=== PATIENT | female | born 1965 | race African-American/Black ===

== ENCOUNTER 2017-05-27 19:17 | Emergency (ER) | payer MEDICARE ==
[~2017-05-27] VITALS: Ht 162.6 cm; Wt 101.2 kg
[~2017-05-27 19:17] MED LIST: ALEVE220 MG OR; AMBIEN5 MG PO; AMITRIPTYLIN25 MG PO; AMLODIPINE2.5 MG PO; ASPIRIN EC81 MG PO; ASPIRIN81 M1 OR; AUGMENTIN500TAB PO; B-1250 MCG PO; BACTRIM DS1 TAB OR; BACTRIM DS1 TAB PO; CIPRO500 MG OR; CLONIDINE0.1 MG PO; COLACE100 MG OR; DIFLUCAN100 MG OR; DIOVAN40 MG PO; DOCUSATE SOD100 M2 OR; DOXYCYC MONO100 MG OR; FLEXERIL PO; GABAPENTIN100 MG PO; GABAPENTIN300 MG PO; GABAPENTIN600 MG PO; GERITOL COMPLETE PO; GERITOL TONIC PO; GLIPIZIDE10 MG OR; GLUCOPHAGE500 MG OR; IBUPROFEN800 MG PO; LANTUS100 MG/ML SC; LEVAQUIN500 MG PO; LIDOCAINE22 EX; LIPITOR40 MG PO; LISINOP/HCTZ1 TA1 PO; LISINOPRIL10 MG OR; LISINOPRIL20 MG; LORTAB 10 OR; LORTAB 5 OR; LORTAB 5 PO; LORTAB 5/3255 MG PO; LORTAB 7.5 PO; LORTAB 7.57.5 MG PO; MAGNESIUM CITRATE PO; METFORMIN1000 MG PO; METFORMIN500 MG PO; MIRALAX PO; MIRALAX3350 N1 PO; MOTRIN600 MG/TAB PO; MOTRIN800 MG OR; NICODERM C21 MG/241 TD; NIZORAL A-D1 % EX; NORVASC2.5 M1 PO; NOVOLIN 70/30 SC; PENICILLN VK500 MG OR; PERCOCET1 TA1 OR; PLAVIX75 MG OR; SIMVASTATIN40 MG OR; ST JOSEPH75 MG OR; ULTRAM50 M1 PO; VENTOLIN HFA IN; VITAMIN C TR1000 MG OR; WELLBUTRIN SR100 MG PO; XANAX0.5 MG PO; ZINC50 M1 PO; ZOFRAN ODT4 MG OR; [UNRECOGNIZED DRUG - OTHER] PO
[2017-05-27 20:42] LABS: HEMATOCRIT 55.7 % (37.0-47.0); HEMOGLOBIN 18.6 g/dl (12.0-16.0); IMMATURE GRANULOCYTES 0.6 % (0.0-1.0); MEAN CELL VOLUME 90.3 fL CALC (80.0-100.0); MEAN CORPUSCULAR HGB 30.1 pG CALC (26.0-32.0); MEAN CORPUSCULAR HGB CONC 33.4 g/L CALC (32.0-36.0); NEUT# 6.44 thou/uL (2.00-7.15); RED BLOOD COUNT 6.17 mill/uL (4.20-5.60); RED CELL DISTRI WIDTH 17.8 % (11.5-15.5)
[2017-05-27 20:42] LABS: URINE BILIRUBIN - DIPSTICK NEGATIVE (NEGATIVE); URINE BLOOD DIPSTICK TRACE-INTACT (NEGATIVE); URINE CLARITY SLIGHT CLOUDY; URINE COLOR YELLOW; URINE GLUCOSE - DIPSTICK >=1000 mg/dL (NEGATIVE); URINE KETONE NEGATIVE (NEGATIVE); URINE NITRITE - DIPSTICK NEGATIVE (Negative); URINE PROTEIN - DIPSTICK TRACE mg/dL (NEG-TRACE); URINE SPECIFIC GRAVITY 1.015; URINE UROBILINOGEN - DIPSTICK 0.2 E.U./dL (0.2)
[2017-05-27 20:48] LABS: URINE LEUK ESTERASE SMALL (NEGATIVE)
[2017-05-27 20:49] LABS: URINE SQUAMOUS EPITHELIAL CELL FEW EPI/hpf (0-FEW); URINE YEAST MANY hpf
[2017-05-27 20:51] LABS: ALBUMIN 4.7 g/dL (3.2-5.0); ALKALINE PHOSPHATASE 168 u/l (38-126); AMYLASE 45 u/l (30-110); ANION GAP 21 (6-22 (CALC)); BILIRUBIN, TOTAL 0.6 mg/dL (0.0-1.4); BUN 26 mg/dL (7-17); BUN/CREATININE RATIO 24 (12-20 (CALC)); CALCIUM 10.5 mg/dL (8.4-10.2); CARBON DIOXIDE 28 mmol/l (22-30); CHLORIDE 102 mmol/l (95-108); CREATININE 1.1 mg/dL (0.5-1.0); GFR 52 ML/MIN (>=60 (CALC)); GFR FOR AFR.AMER. > 60 ML/MIN (>=60 (CALC)); GLUCOSE 101 mg/dL (65-105); LIPASE 41 u/l (23-300); POTASSIUM 4.2 mmol/l (3.5-5.1); SGOT/AST 23 u/l (14-36); SGPT/ALT 34 u/l (9-52); SODIUM 146 mmol/l (137-146); TOTAL PROTEIN 9.2 g/dL (6.3-8.2)
[2017-05-27 21:03] LABS: MYOGLOBIN 63 ng/mL (0 - 62)
[2017-05-27 23:45] VITALS: BP 124/75
== END 2017-05-27 23:43 | disposition left against medical advice (07) ==
LOC: ED 19:17 → ED-I 22:50 → ED 23:22 → MS2 23:23 → ED 23:43 → MS2 23:43
DX: K56.69 Other intestinal obstruction (principal); N39.0 Urinary tract infection, site not specified; Z91.19 Patient's noncompliance with other medical treatment and regimen; R10.11 Right upper quadrant pain; R12 Heartburn; I10 Essential (primary) hypertension; F17.210 Nicotine dependence, cigarettes, uncomplicated
CPT/HCPCS: Q9967

== ENCOUNTER 2018-04-05 12:28 | Emergency (ER) | payer OTHER, MEDICARE ==
[~2018-04-05] VITALS: Ht 162.6 cm; Wt 95.6 kg
[2018-04-05 13:03] VITALS: BP 128/74
[2018-04-05] MEDS ORDERED: FLEXERIL PO (14:14)
== END 2018-04-05 14:12 | disposition left against medical advice (07) | DRG 563 ==
LOC: ED 12:28
DX: S39.012A Strain of muscle, fascia and tendon of lower back, initial encounter (principal); E11.9 Type 2 diabetes mellitus without complications; I10 Essential (primary) hypertension; M79.7 Fibromyalgia; V49.40XA Driver injured in collision with unspecified motor vehicles in traffic accident, initial encounter; Z91.19 Patient's noncompliance with other medical treatment and regimen

== ENCOUNTER 2018-07-09 16:03 | Emergency (ER) | payer MEDICARE ==
[~2018-07-09] VITALS: Ht 162.6 cm; Wt 85.0 kg
[2018-07-09 17:32] LABS: IMMATURE GRANULOCYTES 0.7 % (0.0-5.0); MEAN CELL VOLUME 87.7 fL CALC (80.0-100.0); MEAN CORPUSCULAR HGB 30.1 pG CALC (26.0-32.0); MEAN CORPUSCULAR HGB CONC 34.4 g/L CALC (32.0-36.0); NEUT# 7.5 thou/uL (2.00-7.15); RED BLOOD COUNT 5.51 mill/uL (4.20-5.60); RED CELL DISTRI WIDTH 13.7 % (11.5-15.5)
[2018-07-09 17:45] LABS: HEMATOCRIT 48.3 % (37.0-47.0); HEMOGLOBIN 16.6 g/dl (12.0-16.0)
[2018-07-09 17:52] LABS: ALBUMIN 4.1 g/dL (3.2-5.0); ALKALINE PHOSPHATASE 248 u/l (38-126); ANION GAP 18 (6-22 (CALC)); BILIRUBIN, TOTAL 0.5 mg/dL (0.0-1.4); BUN 27 mg/dL (7-17); BUN/CREATININE RATIO 30 (12-20 (CALC)); CARBON DIOXIDE 28 mmol/l (22-30); CHLORIDE 98 mmol/l (95-108); CREATININE 0.9 mg/dL (0.5-1.0); GFR > 60 ML/MIN (>=60 (CALC)); GFR FOR AFR.AMER. > 60 ML/MIN (>=60 (CALC)); LIPASE 52 u/l (23-300); POTASSIUM 3.8 mmol/l (3.5-5.1); SGOT/AST 15 u/l (14-36); SGPT/ALT 24 u/l (9-52); SODIUM 141 mmol/l (137-146); TOTAL PROTEIN 7.8 g/dL (6.3-8.2)
[2018-07-09 19:03] LABS: URINE BILIRUBIN - DIPSTICK NEGATIVE (NEGATIVE); URINE BLOOD DIPSTICK NEGATIVE (NEGATIVE); URINE COLOR YELLOW; URINE GLUCOSE - DIPSTICK >=1000 mg/dL (NEGATIVE); URINE KETONE NEGATIVE (NEGATIVE); URINE LEUK ESTERASE NEGATIVE (NEGATIVE); URINE PH 5.5 (4.5-8.0); URINE PROTEIN - DIPSTICK NEGATIVE (NEG-TRACE); URINE UROBILINOGEN - DIPSTICK 0.2 E.U./dL (0.2)
[2018-07-09 19:06] LABS: URINE CLARITY SL CLOUDY; URINE NITRITE - DIPSTICK POSITIVE (Negative)
[2018-07-09 19:14] LABS: URINE BACTERIA MANY hpf; URINE RBC 0-2 RBC/hpf (0-5); URINE SQUAMOUS EPITHELIAL CELL FEW EPI/hpf (0-FEW)
[2018-07-09 23:27] VITALS: BP 130/71
== END 2018-07-09 23:27 | disposition home or self-care (01) ==
LOC: ED 16:03
PROVIDERS: Emergency Medicine
DX: K43.6 Other and unspecified ventral hernia with obstruction, without gangrene (principal); G89.29 Other chronic pain; M54.5 Low back pain; I10 Essential (primary) hypertension; E11.9 Type 2 diabetes mellitus without complications; M79.7 Fibromyalgia; F17.210 Nicotine dependence, cigarettes, uncomplicated

== ENCOUNTER 2018-10-02 10:02 | Emergency (ER) | payer MEDICARE ==
[~2018-10-02] VITALS: Ht 162.6 cm; Wt 90.9 kg
[2018-10-02 10:57] LABS: HEMATOCRIT 46.5 % (37.0-47.0); HEMOGLOBIN 15.4 g/dl (12.0-16.0); IMMATURE GRANULOCYTES 0.3 % (0.0-5.0); MEAN CELL VOLUME 87.9 fL CALC (80.0-100.0); MEAN CORPUSCULAR HGB 29.1 pG CALC (26.0-32.0); MEAN CORPUSCULAR HGB CONC 33.1 g/L CALC (32.0-36.0); NEUT# 5.2 thou/uL (2.00-7.15); RED BLOOD COUNT 5.29 mill/uL (4.20-5.60); RED CELL DISTRI WIDTH 13.3 % (11.5-15.5)
[2018-10-02 11:16] LABS: ALBUMIN 3.9 g/dL (3.2-5.0); ALKALINE PHOSPHATASE 224 u/l (38-126); ANION GAP 15 (6-22 (CALC)); BILIRUBIN, TOTAL 0.4 mg/dL (0.0-1.4); BUN 16 mg/dL (7-17); BUN/CREATININE RATIO 23 (12-20 (CALC)); CARBON DIOXIDE 27 mmol/l (22-30); CHLORIDE 101 mmol/l (95-108); CREATININE 0.7 mg/dL (0.5-1.0); GFR > 60 ML/MIN (>=60 (CALC)); GFR FOR AFR.AMER. > 60 ML/MIN (>=60 (CALC)); POTASSIUM 3.9 mmol/l (3.5-5.1); SGOT/AST 16 u/l (14-36); SODIUM 139 mmol/l (137-146); TOTAL PROTEIN 7.7 g/dL (6.3-8.2)
[2018-10-02 11:35] LABS: URINE BILIRUBIN - DIPSTICK NEGATIVE (NEGATIVE); URINE BLOOD DIPSTICK NEGATIVE (NEGATIVE); URINE COLOR YELLOW; URINE GLUCOSE - DIPSTICK >=1000 mg/dL (NEGATIVE); URINE KETONE NEGATIVE (NEGATIVE); URINE LEUK ESTERASE NEGATIVE (NEGATIVE); URINE PROTEIN - DIPSTICK NEGATIVE (NEG-TRACE); URINE SPECIFIC GRAVITY 1.015; URINE UROBILINOGEN - DIPSTICK 0.2 E.U./dL (0.2)
[2018-10-02 11:44] LABS: URINE CLARITY CLEAR; URINE NITRITE - DIPSTICK POSITIVE (Negative)
[2018-10-02 12:06] LABS: URINE BACTERIA MANY hpf; URINE SQUAMOUS EPITHELIAL CELL FEW EPI/hpf (0-FEW)
[2018-10-02 12:07] LABS: BARBITURATES NEGATIVE (NEGATIVE); COCAINE NEGATIVE (NEGATIVE); METHADONE NEGATIVE (NEGATIVE); OXCYCODONE NEGATIVE (NEGATIVE); TETRAHYDROCANNABIONOL NEGATIVE (NEGATIVE); TRICYLIC ANTIDEPRESSANTS POSITIVE (NEGATIVE)
[2018-10-02] MEDS ORDERED: BACTRIM DS1 TAB PO (12:18)
[2018-10-02 12:21] VITALS: BP 146/87
== END 2018-10-02 12:25 | disposition left against medical advice (07) ==
LOC: ED 10:02
PROVIDERS: Emergency Medicine
DX: R25.1 Tremor, unspecified (principal); E11.65 Type 2 diabetes mellitus with hyperglycemia; N39.0 Urinary tract infection, site not specified; B96.20 Unspecified Escherichia coli [E. coli] as the cause of diseases classified elsewhere; I10 Essential (primary) hypertension; F17.210 Nicotine dependence, cigarettes, uncomplicated; Z91.19 Patient's noncompliance with other medical treatment and regimen

== ENCOUNTER 2019-06-03 23:16 | Emergency (ER) | payer MEDICARE ==
[~2019-06-03] VITALS: Ht 162.6 cm; Wt 100.0 kg
[2019-06-04] MEDS ORDERED: LORTAB 1010 MG PO (01:04)
[2019-06-04] MEDS ORDERED: FLEXERIL PO (01:05)
[2019-06-04 01:20] VITALS: BP 150/78
== END 2019-06-04 01:20 | disposition home or self-care (01) ==
LOC: ED 23:16
DX: S32.10XA Unspecified fracture of sacrum, initial encounter for closed fracture (principal); S32.2XXA Fracture of coccyx, initial encounter for closed fracture; E11.9 Type 2 diabetes mellitus without complications; I10 Essential (primary) hypertension; W17.89XA Other fall from one level to another, initial encounter; Z79.4 Long term (current) use of insulin

== ENCOUNTER 2019-08-24 21:11 | Observation (INO) | payer MEDICARE ==
[~2019-08-24] VITALS: Ht 162.6 cm; Wt 98.0 kg
[~2019-08-24 21:11] MED LIST changes: +LORTAB 1010 MG PO
[2019-08-24 21:47] LABS: HEMATOCRIT 42.6 % (37.0-47.0); IMMATURE GRANULOCYTES 0.5 % (0.0-5.0); MEAN CORPUSCULAR HGB 29.9 pG CALC (26.0-32.0); MEAN CORPUSCULAR HGB CONC 32.9 g/L CALC (32.0-36.0); NEUT# 5.98 thou/uL (2.00-7.15); RED BLOOD COUNT 4.68 mill/uL (4.20-5.60); RED CELL DISTRI WIDTH 15.2 % (11.5-15.5)
[2019-08-24 22:00] LABS: ALBUMIN 3.8 g/dL (3.2-5.0); ALKALINE PHOSPHATASE 154 u/l (38-126); ANION GAP 15 (6-22 (CALC)); BILIRUBIN, TOTAL 0.4 mg/dL (0.0-1.4); BUN 25 mg/dL (7-17); BUN/CREATININE RATIO 24 (12-20 (CALC)); CARBON DIOXIDE 25 mmol/l (22-30); CHLORIDE 105 mmol/l (95-108); CREATININE 1.1 mg/dL (0.5-1.0); GFR 52 ML/MIN (>=60 (CALC)); GFR FOR AFR.AMER. > 60 ML/MIN (>=60 (CALC)); LIPASE 30 u/l (23-300); POTASSIUM 3.7 mmol/l (3.5-5.1); SGOT/AST 14 u/l (14-36); SODIUM 140 mmol/l (137-146); TOTAL PROTEIN 7.4 g/dL (6.3-8.2)
[2019-08-24] MEDS ORDERED: VICTOZA18 MG/3 ML SC (22:24)
[2019-08-25 01:13] LABS: URINE BILIRUBIN - DIPSTICK NEGATIVE (NEGATIVE); URINE BLOOD DIPSTICK NEGATIVE (NEGATIVE); URINE GLUCOSE - DIPSTICK NEGATIVE (NEGATIVE); URINE KETONE TRACE mg/dL (NEGATIVE); URINE LEUK ESTERASE NEGATIVE (NEGATIVE); URINE PROTEIN - DIPSTICK NEGATIVE (NEG-TRACE); URINE SPECIFIC GRAVITY 1.025; URINE UROBILINOGEN - DIPSTICK 0.2 E.U./dL (0.2)
[2019-08-25 01:14] LABS: URINE COLOR DK. YELLOW; URINE NITRITE - DIPSTICK POSITIVE (Negative)
[2019-08-25 01:16] LABS: BARBITURATES NEGATIVE (NEGATIVE); COCAINE NEGATIVE (NEGATIVE); METHADONE NEGATIVE (NEGATIVE); OXCYCODONE NEGATIVE (NEGATIVE); TETRAHYDROCANNABIONOL NEGATIVE (NEGATIVE); TRICYLIC ANTIDEPRESSANTS POSITIVE (NEGATIVE); URINE BACTERIA MANY hpf
[2019-08-25 02:35] VITALS: BP 135/76
[2019-08-25 05:13] LABS: HEMATOCRIT 39.2 % (37.0-47.0); HEMOGLOBIN 12.9 g/dl (12.0-16.0); IMMATURE GRANULOCYTES 0.5 % (0.0-5.0); MEAN CORPUSCULAR HGB 30.3 pG CALC (26.0-32.0); MEAN CORPUSCULAR HGB CONC 32.9 g/L CALC (32.0-36.0); NEUT# 4.53 thou/uL (2.00-7.15); RED BLOOD COUNT 4.26 mill/uL (4.20-5.60); RED CELL DISTRI WIDTH 15.3 % (11.5-15.5)
[2019-08-25 05:36] LABS: ANION GAP 12 (6-22 (CALC)); BUN 23 mg/dL (7-17); BUN/CREATININE RATIO 27 (12-20 (CALC)); CARBON DIOXIDE 24 mmol/l (22-30); CHLORIDE 108 mmol/l (95-108); CREATININE 0.8 mg/dL (0.5-1.0); GFR > 60 ML/MIN (>=60 (CALC)); GFR FOR AFR.AMER. > 60 ML/MIN (>=60 (CALC)); POTASSIUM 3.6 mmol/l (3.5-5.1); SODIUM 140 mmol/l (137-146)
[2019-08-25 08:00] VITALS: BP 138/66
== END 2019-08-25 14:10 | disposition home or self-care (01) ==
LOC: ED 21:11 → ED-I 08-25 01:14 → ED 08-25 01:34 → MS2 08-25 01:35
PROVIDERS: ADMIT Internal Medicine; ATTEND Internal Medicine
PROC: 0T9B70Z Drainage of Bladder with Drainage Device, Via Natural or Artificial Opening (ICD-10-PCS; principal; 2019-08-25)
DX: K43.0 Incisional hernia with obstruction, without gangrene (principal); E11.10 Type 2 diabetes mellitus with ketoacidosis without coma; I10 Essential (primary) hypertension; I70.0 Atherosclerosis of aorta; M54.5 Low back pain; G89.29 Other chronic pain; F17.200 Nicotine dependence, unspecified, uncomplicated; Z95.820 Peripheral vascular angioplasty status with implants and grafts; Z79.4 Long term (current) use of insulin

== ENCOUNTER 2019-10-06 07:36 | Inpatient (IN) | payer MEDICARE ==
[2019-10-06] VITALS (8 sets, daily range): BP systolic 105–122; BP diastolic 58–87
[~2019-10-06] VITALS: Ht 162.6 cm; Wt 101.0 kg
[~2019-10-06 07:36] MED LIST changes: +ASPIRIN81 MG PO; +HUMALOG KW100 UNIT/M SC; +MAXZIDE-2537.5 MG/TA PO; +MOTRIN800 MG PO; +NIFEDIPINE60 MG PO; +OMEPRAZOLE20 MG PO; +TRESIBA FL100 UNIT/M SC; +TRESIBA100 UNIT/M; +VICTOZA18 MG/3 ML SC
[2019-10-07] VITALS (7 sets, daily range): BP systolic 101–124; BP diastolic 60–72
[2019-10-07 06:19] LABS: IMMATURE GRANULOCYTES 0.5 % (0.0-5.0); MEAN CELL VOLUME 93.9 fL CALC (80.0-100.0); MEAN CORPUSCULAR HGB 29.4 pG CALC (26.0-32.0); MEAN CORPUSCULAR HGB CONC 31.3 g/L CALC (32.0-36.0); NEUT# 11.95 thou/uL (2.00-7.15); RED BLOOD COUNT 3.1 mill/uL (4.20-5.60); RED CELL DISTRI WIDTH 15.3 % (11.5-15.5)
[2019-10-07 06:23] LABS: HEMATOCRIT 29.1 % (37.0-47.0); HEMOGLOBIN 9.1 g/dl (12.0-16.0)
[2019-10-07 09:11] LABS: ANION GAP 14 (6-22 (CALC)); BUN 26 mg/dL (7-17); BUN/CREATININE RATIO 24 (12-20 (CALC)); CARBON DIOXIDE 20 mmol/l (22-30); CHLORIDE 108 mmol/l (95-108); CREATININE 1.1 mg/dL (0.5-1.0); GFR 52 ML/MIN (>=60 (CALC)); GFR FOR AFR.AMER. > 60 ML/MIN (>=60 (CALC)); POTASSIUM 4.7 mmol/l (3.5-5.1); SODIUM 137 mmol/l (137-146)
[2019-10-07 13:30] LABS: HEMATOCRIT 25.9 % (37.0-47.0); HEMOGLOBIN 8.1 g/dl (12.0-16.0)
[2019-10-08] VITALS (8 sets, daily range): BP systolic 103–128; BP diastolic 61–73
[2019-10-08 05:05] LABS: HEMATOCRIT 23.7 % (37.0-47.0); HEMOGLOBIN 7.4 g/dl (12.0-16.0); IMMATURE GRANULOCYTES 0.7 % (0.0-5.0); MEAN CELL VOLUME 93.7 fL CALC (80.0-100.0); MEAN CORPUSCULAR HGB 29.2 pG CALC (26.0-32.0); MEAN CORPUSCULAR HGB CONC 31.2 g/L CALC (32.0-36.0); NEUT# 6.56 thou/uL (2.00-7.15); RED BLOOD COUNT 2.53 mill/uL (4.20-5.60)
[2019-10-08 05:18] LABS: ANION GAP 9 (6-22 (CALC)); BUN 18 mg/dL (7-17); BUN/CREATININE RATIO 21 (12-20 (CALC)); CARBON DIOXIDE 24 mmol/l (22-30); CHLORIDE 107 mmol/l (95-108); CREATININE 0.8 mg/dL (0.5-1.0); GFR > 60 ML/MIN (>=60 (CALC)); GFR FOR AFR.AMER. > 60 ML/MIN (>=60 (CALC)); SODIUM 136 mmol/l (137-146)
[2019-10-09 00:03] VITALS: BP 133/80
[2019-10-09 04:17] VITALS: BP 125/63
[2019-10-09 06:09] LABS: ANION GAP 8 (6-22 (CALC)); BUN 15 mg/dL (7-17); BUN/CREATININE RATIO 22 (12-20 (CALC)); CARBON DIOXIDE 26 mmol/l (22-30); CHLORIDE 106 mmol/l (95-108); CREATININE 0.7 mg/dL (0.5-1.0); GFR > 60 ML/MIN (>=60 (CALC)); GFR FOR AFR.AMER. > 60 ML/MIN (>=60 (CALC)); MAGNESIUM 1.6 mg/dL (1.6-2.3); POTASSIUM 4.2 mmol/l (3.5-5.1); SODIUM 137 mmol/l (137-146)
[2019-10-09 06:17] LABS: HEMATOCRIT 27.8 % (37.0-47.0); HEMOGLOBIN 8.8 g/dl (12.0-16.0); IMMATURE GRANULOCYTES 1.1 % (0.0-5.0); MEAN CELL VOLUME 90.8 fL CALC (80.0-100.0); MEAN CORPUSCULAR HGB 28.8 pG CALC (26.0-32.0); MEAN CORPUSCULAR HGB CONC 31.7 g/L CALC (32.0-36.0); NEUT# 7.12 thou/uL (2.00-7.15); RED BLOOD COUNT 3.06 mill/uL (4.20-5.60); RED CELL DISTRI WIDTH 15.8 % (11.5-15.5)
[2019-10-09 15:00] VITALS: BP 120/62
[2019-10-09 19:53] VITALS: BP 144/57
[2019-10-10 00:05] VITALS: BP 126/68
[2019-10-10 03:40] VITALS: BP 133/61
[2019-10-10 08:15] VITALS: BP 123/67
[2019-10-10 15:33] VITALS: BP 131/75
[2019-10-10 18:13] LABS: HEMATOCRIT 28.7 % (37.0-47.0); HEMOGLOBIN 9.2 g/dl (12.0-16.0); IMMATURE GRANULOCYTES 1.7 % (0.0-5.0); MEAN CELL VOLUME 90.8 fL CALC (80.0-100.0); MEAN CORPUSCULAR HGB 29.1 pG CALC (26.0-32.0); MEAN CORPUSCULAR HGB CONC 32.1 g/L CALC (32.0-36.0); NEUT# 8.23 thou/uL (2.00-7.15); RED BLOOD COUNT 3.16 mill/uL (4.20-5.60); RED CELL DISTRI WIDTH 15.2 % (11.5-15.5)
[2019-10-10 18:27] LABS: ANION GAP 10 (6-22 (CALC)); BUN 11 mg/dL (7-17); BUN/CREATININE RATIO 14 (12-20 (CALC)); CARBON DIOXIDE 30 mmol/l (22-30); CHLORIDE 103 mmol/l (95-108); CREATININE 0.8 mg/dL (0.5-1.0); GFR > 60 ML/MIN (>=60 (CALC)); GFR FOR AFR.AMER. > 60 ML/MIN (>=60 (CALC)); MAGNESIUM 1.9 mg/dL (1.6-2.3); POTASSIUM 3.9 mmol/l (3.5-5.1); SODIUM 139 mmol/l (137-146)
[2019-10-10 20:30] VITALS: BP 126/66
[2019-10-11 00:50] VITALS: BP 122/61
[2019-10-11 04:52] LABS: HEMATOCRIT 27.3 % (37.0-47.0); HEMOGLOBIN 8.7 g/dl (12.0-16.0); IMMATURE GRANULOCYTES 1.6 % (0.0-5.0); MEAN CELL VOLUME 91.6 fL CALC (80.0-100.0); MEAN CORPUSCULAR HGB 29.2 pG CALC (26.0-32.0); MEAN CORPUSCULAR HGB CONC 31.9 g/L CALC (32.0-36.0); NEUT# 6.46 thou/uL (2.00-7.15); RED BLOOD COUNT 2.98 mill/uL (4.20-5.60)
[2019-10-11 05:39] LABS: ANION GAP 11 (6-22 (CALC)); BUN 10 mg/dL (7-17); BUN/CREATININE RATIO 14 (12-20 (CALC)); CARBON DIOXIDE 26 mmol/l (22-30); CHLORIDE 104 mmol/l (95-108); CREATININE 0.7 mg/dL (0.5-1.0); GFR > 60 ML/MIN (>=60 (CALC)); GFR FOR AFR.AMER. > 60 ML/MIN (>=60 (CALC)); POTASSIUM 4.1 mmol/l (3.5-5.1); SODIUM 138 mmol/l (137-146)
[2019-10-11 15:14] VITALS: BP 134/76
[2019-10-11 19:02] VITALS: BP 130/70
[2019-10-12 00:40] VITALS: BP 136/74
[2019-10-12 04:49] VITALS: BP 134/75
[2019-10-12 05:12] LABS: HEMATOCRIT 28.9 % (37.0-47.0); HEMOGLOBIN 9.1 g/dl (12.0-16.0)
[2019-10-12 05:48] LABS: ANION GAP 11 (6-22 (CALC)); BUN 12 mg/dL (7-17); BUN/CREATININE RATIO 17 (12-20 (CALC)); CARBON DIOXIDE 30 mmol/l (22-30); CHLORIDE 103 mmol/l (95-108); CREATININE 0.7 mg/dL (0.5-1.0); GFR > 60 ML/MIN (>=60 (CALC)); GFR FOR AFR.AMER. > 60 ML/MIN (>=60 (CALC)); POTASSIUM 4.5 mmol/l (3.5-5.1); SODIUM 139 mmol/l (137-146)
[2019-10-12 08:49] VITALS: BP 154/63
[2019-10-12 09:15] VITALS: BP 154/63
[2019-10-12] MEDS ORDERED: PERCOCET 5/321 COMBO PO (09:54)
== END 2019-10-12 16:23 | disposition left against medical advice (07) | DRG 329 ==
LOC: ORM 07:36 → MS2 12:00
PROVIDERS: Internal Medicine; Nurse Practitioner Family; ADMIT Surgery; ATTEND Surgery
PROC: 0WUF0JZ Supplement Abdominal Wall with Synthetic Substitute, Open Approach (ICD-10-PCS; principal; 2019-10-06)
PROC: 0DSH0ZZ Reposition Cecum, Open Approach (ICD-10-PCS; 2019-10-06)
PROC: 0WJF4ZZ Inspection of Abdominal Wall, Percutaneous Endoscopic Approach (ICD-10-PCS; 2019-10-06)
PROC: 0DN80ZZ Release Small Intestine, Open Approach (ICD-10-PCS; 2019-10-06)
PROC: 0DNW0ZZ Release Peritoneum, Open Approach (ICD-10-PCS; 2019-10-06)
PROC: 0T9B70Z Drainage of Bladder with Drainage Device, Via Natural or Artificial Opening (ICD-10-PCS; 2019-10-06)
PROC: 30233N1 Transfusion of Nonautologous Red Blood Cells into Peripheral Vein, Percutaneous Approach (ICD-10-PCS; 2019-10-08)
DX: K43.0 Incisional hernia with obstruction, without gangrene (principal); K56.2 Volvulus; D62 Acute posthemorrhagic anemia; E66.2 Morbid (severe) obesity with alveolar hypoventilation; K66.0 Peritoneal adhesions (postprocedural) (postinfection); I10 Essential (primary) hypertension; E11.51 Type 2 diabetes mellitus with diabetic peripheral angiopathy without gangrene; M79.7 Fibromyalgia; R09.02 Hypoxemia; R33.8 Other retention of urine; J44.9 Chronic obstructive pulmonary disease, unspecified; Z87.891 Personal history of nicotine dependence; Z68.38 Body mass index [BMI] 38.0-38.9, adult; Z99.81 Dependence on supplemental oxygen; Z95.820 Peripheral vascular angioplasty status with implants and grafts; Z79.84 Long term (current) use of oral hypoglycemic drugs
CPT/HCPCS: J0131; J1100; J2710; P9016

== ENCOUNTER 2019-10-21 11:27 | Day surgery (SDC) | payer MEDICARE ==
[~2019-10-21] VITALS: Ht 162.6 cm; Wt 87.1 kg
[~2019-10-21 11:27] MED LIST changes: +PERCOCET 5/321 COMBO PO
[2019-10-21] MEDS ORDERED: PERCOCET 5/325M1 TAB PO (13:19)
[2019-10-21 14:46] VITALS: BP 105/52
== END 2019-10-21 14:58 | disposition home or self-care (01) ==
LOC: ORM 11:27
PROVIDERS: ATTEND Surgery
PROC: 0HQ7XZZ Repair Abdomen Skin, External Approach (ICD-10-PCS; principal; 2019-10-21)
DX: T81.31XA Disruption of external operation (surgical) wound, not elsewhere classified, initial encounter (principal); L76.32 Postprocedural hematoma of skin and subcutaneous tissue following other procedure; I10 Essential (primary) hypertension; E11.9 Type 2 diabetes mellitus without complications; Y83.2 Surgical operation with anastomosis, bypass or graft as the cause of abnormal reaction of the patient, or of later complication, without mention of misadventure at the time of the procedure; Z79.4 Long term (current) use of insulin
CPT/HCPCS: J0131; J1100

== ENCOUNTER 2019-10-26 13:09 | Inpatient (IN) | payer MEDICARE ==
[~2019-10-26] VITALS: Ht 162.6 cm; Wt 88.3 kg
[~2019-10-26 13:09] MED LIST changes: +PERCOCET 5/325M1 TAB PO
[2019-10-26 13:30] VITALS: BP 109/64; BP 148/67
[2019-10-26 16:27] VITALS: BP 96/64
[2019-10-26 16:52] LABS: HEMATOCRIT 33.4 % (37.0-47.0); HEMOGLOBIN 10.3 g/dl (12.0-16.0); IMMATURE GRANULOCYTES 2.1 % (0.0-5.0); MEAN CELL VOLUME 88.1 fL CALC (80.0-100.0); MEAN CORPUSCULAR HGB 27.2 pG CALC (26.0-32.0); MEAN CORPUSCULAR HGB CONC 30.8 g/L CALC (32.0-36.0); NEUT# 11.86 thou/uL (2.00-7.15); RED BLOOD COUNT 3.79 mill/uL (4.20-5.60); RED CELL DISTRI WIDTH 15.6 % (11.5-15.5)
[2019-10-26 17:08] LABS: BUN 27 mg/dL (7-17); BUN/CREATININE RATIO 24 (12-20 (CALC)); CHLORIDE 106 mmol/l (95-108); CREATININE 1.1 mg/dL (0.5-1.0); GFR 52 ML/MIN (>=60 (CALC)); GFR FOR AFR.AMER. > 60 ML/MIN (>=60 (CALC)); SODIUM 139 mmol/l (137-146)
[2019-10-26 17:10] LABS: ANION GAP 15 (6-22 (CALC)); CARBON DIOXIDE 21 mmol/l (22-30); POTASSIUM 3.3 mmol/l (3.5-5.1)
[2019-10-26 20:10] VITALS: BP 107/56
[2019-10-27] VITALS (9 sets, daily range): BP systolic 90–127; BP diastolic 56–67
[2019-10-27 00:25] LABS: URINE BILIRUBIN - DIPSTICK NEGATIVE (NEGATIVE); URINE BLOOD DIPSTICK NEGATIVE (NEGATIVE); URINE COLOR YELLOW; URINE GLUCOSE - DIPSTICK NEGATIVE (NEGATIVE); URINE KETONE NEGATIVE (NEGATIVE); URINE LEUK ESTERASE NEGATIVE (NEGATIVE); URINE NITRITE - DIPSTICK NEGATIVE (Negative); URINE PH 5.5 (4.5-8.0); URINE PROTEIN - DIPSTICK NEGATIVE (NEG-TRACE); URINE SPECIFIC GRAVITY 1.025
[2019-10-27 04:56] LABS: HEMATOCRIT 29.9 % (37.0-47.0); HEMOGLOBIN 9.3 g/dl (12.0-16.0); IMMATURE GRANULOCYTES 1.4 % (0.0-5.0); MEAN CELL VOLUME 87.7 fL CALC (80.0-100.0); MEAN CORPUSCULAR HGB 27.3 pG CALC (26.0-32.0); MEAN CORPUSCULAR HGB CONC 31.1 g/L CALC (32.0-36.0); NEUT# 9.33 thou/uL (2.00-7.15); RED BLOOD COUNT 3.41 mill/uL (4.20-5.60); RED CELL DISTRI WIDTH 15.5 % (11.5-15.5)
[2019-10-27 05:16] LABS: CREATININE 1.2 mg/dL (0.5-1.0); POTASSIUM 3.8 mmol/l (3.5-5.1)
[2019-10-28] VITALS: BP 108/65
[2019-10-28 04:00] VITALS: BP 128/68
[2019-10-28 05:38] LABS: URINE BLOOD DIPSTICK NEGATIVE (NEGATIVE); URINE COLOR YELLOW; URINE GLUCOSE - DIPSTICK NEGATIVE (NEGATIVE); URINE KETONE NEGATIVE (NEGATIVE); URINE LEUK ESTERASE NEGATIVE (NEGATIVE); URINE NITRITE - DIPSTICK NEGATIVE (Negative); URINE PROTEIN - DIPSTICK 30 mg/dL (NEG-TRACE); URINE SPECIFIC GRAVITY 1.025
[2019-10-28 05:53] LABS: HEMOGLOBIN 8.9 g/dl (12.0-16.0); IMMATURE GRANULOCYTES 1.7 % (0.0-5.0); MEAN CORPUSCULAR HGB 27.6 pG CALC (26.0-32.0); MEAN CORPUSCULAR HGB CONC 31.8 g/L CALC (32.0-36.0); NEUT# 16.61 thou/uL (2.00-7.15); RED BLOOD COUNT 3.22 mill/uL (4.20-5.60); RED CELL DISTRI WIDTH 16.1 % (11.5-15.5)
[2019-10-28 05:59] LABS: URINE BILIRUBIN - DIPSTICK NEGATIVE (NEGATIVE)
[2019-10-28 06:02] LABS: CREATININE 1.3 mg/dL (0.5-1.0); POTASSIUM 4.1 mmol/l (3.5-5.1)
[2019-10-28 06:04] LABS: URINE BACTERIA MODERATE hpf; URINE EPITHELIAL CELLS MANY EPI/hpf (0-FEW)
[2019-10-28 09:25] VITALS: BP 100/56
[2019-10-28 15:50] VITALS: BP 126/66
[2019-10-28 18:54] VITALS: BP 121/71
[2019-10-29 03:06] VITALS: BP 103/64
[2019-10-29 05:30] LABS: HEMATOCRIT 26.8 % (37.0-47.0); HEMOGLOBIN 8.1 g/dl (12.0-16.0); IMMATURE GRANULOCYTES 2.2 % (0.0-5.0); MEAN CELL VOLUME 89.6 fL CALC (80.0-100.0); MEAN CORPUSCULAR HGB 27.1 pG CALC (26.0-32.0); MEAN CORPUSCULAR HGB CONC 30.2 g/L CALC (32.0-36.0); NEUT# 12.79 thou/uL (2.00-7.15); RED BLOOD COUNT 2.99 mill/uL (4.20-5.60)
[2019-10-29 06:11] LABS: ANION GAP 13 (6-22 (CALC)); BUN 13 mg/dL (7-17); BUN/CREATININE RATIO 13 (12-20 (CALC)); CARBON DIOXIDE 19 mmol/l (22-30); CHLORIDE 113 mmol/l (95-108); GFR 58 ML/MIN (>=60 (CALC)); GFR FOR AFR.AMER. > 60 ML/MIN (>=60 (CALC)); MAGNESIUM 1.8 mg/dL (1.6-2.3); POTASSIUM 3.9 mmol/l (3.5-5.1); SODIUM 141 mmol/l (137-146)
[2019-10-29 08:31] VITALS: BP 96/65
[2019-10-29 14:40] VITALS: BP 110/68
[2019-10-29 19:25] VITALS: BP 125/69
[2019-10-29 23:50] VITALS: BP 125/78
[2019-10-30] VITALS (9 sets, daily range): BP systolic 103–135; BP diastolic 46–75
[2019-10-30 05:20] LABS: HEMATOCRIT 27.9 % (37.0-47.0); HEMOGLOBIN 8.5 g/dl (12.0-16.0); IMMATURE GRANULOCYTES 1.9 % (0.0-5.0); MEAN CELL VOLUME 89.1 fL CALC (80.0-100.0); MEAN CORPUSCULAR HGB 27.2 pG CALC (26.0-32.0); MEAN CORPUSCULAR HGB CONC 30.5 g/L CALC (32.0-36.0); NEUT# 14.11 thou/uL (2.00-7.15); RED BLOOD COUNT 3.13 mill/uL (4.20-5.60); RED CELL DISTRI WIDTH 16.1 % (11.5-15.5)
[2019-10-30 05:29] LABS: ANION GAP 13 (6-22 (CALC)); BUN 9 mg/dL (7-17); BUN/CREATININE RATIO 9 (12-20 (CALC)); CARBON DIOXIDE 19 mmol/l (22-30); CHLORIDE 114 mmol/l (95-108); GFR 58 ML/MIN (>=60 (CALC)); GFR FOR AFR.AMER. > 60 ML/MIN (>=60 (CALC)); MAGNESIUM 1.7 mg/dL (1.6-2.3); POTASSIUM 3.8 mmol/l (3.5-5.1); SODIUM 142 mmol/l (137-146)
[2019-10-31 00:20] VITALS: BP 112/68
[2019-10-31 04:00] VITALS: BP 130/77
[2019-10-31 06:11] LABS: HEMATOCRIT 27.7 % (37.0-47.0); HEMOGLOBIN 8.3 g/dl (12.0-16.0); IMMATURE GRANULOCYTES 1.6 % (0.0-5.0); MEAN CELL VOLUME 89.4 fL CALC (80.0-100.0); MEAN CORPUSCULAR HGB 26.8 pG CALC (26.0-32.0); NEUT# 11.13 thou/uL (2.00-7.15); RED BLOOD COUNT 3.1 mill/uL (4.20-5.60); RED CELL DISTRI WIDTH 16.2 % (11.5-15.5)
[2019-10-31 06:31] LABS: BUN 5 mg/dL (7-17); BUN/CREATININE RATIO 7 (12-20 (CALC)); CARBON DIOXIDE 19 mmol/l (22-30); CHLORIDE 114 mmol/l (95-108); CREATININE 0.8 mg/dL (0.5-1.0); GFR > 60 ML/MIN (>=60 (CALC)); GFR FOR AFR.AMER. > 60 ML/MIN (>=60 (CALC)); MAGNESIUM 1.5 mg/dL (1.6-2.3)
[2019-10-31 06:50] LABS: SODIUM 139 mmol/l (137-146)
[2019-10-31 07:37] LABS: ANION GAP 10 (6-22 (CALC)); POTASSIUM 3.8 mmol/l (3.5-5.1)
[2019-10-31 08:30] VITALS: BP 123/66
[2019-10-31 10:50] VITALS: BP 116/66
[2019-10-31 16:32] VITALS: BP 103/67
[2019-10-31 19:14] VITALS: BP 113/67
[2019-11-01 00:26] VITALS: BP 111/66
[2019-11-01 05:15] VITALS: BP 126/78
[2019-11-01 05:22] LABS: HEMATOCRIT 24.7 % (37.0-47.0); HEMOGLOBIN 7.6 g/dl (12.0-16.0); MEAN CELL VOLUME 88.5 fL CALC (80.0-100.0); MEAN CORPUSCULAR HGB 27.2 pG CALC (26.0-32.0); MEAN CORPUSCULAR HGB CONC 30.8 g/L CALC (32.0-36.0); RED BLOOD COUNT 2.79 mill/uL (4.20-5.60); RED CELL DISTRI WIDTH 16.1 % (11.5-15.5)
[2019-11-01 05:36] LABS: ALKALINE PHOSPHATASE 160 u/l (38-126); ANION GAP 12 (6-22 (CALC)); BILIRUBIN, TOTAL 0.3 mg/dL (0.0-1.4); BUN 4 mg/dL (7-17); BUN/CREATININE RATIO 5 (12-20 (CALC)); CARBON DIOXIDE 19 mmol/l (22-30); CHLORIDE 112 mmol/l (95-108); CREATININE 0.7 mg/dL (0.5-1.0); GFR > 60 ML/MIN (>=60 (CALC)); GFR FOR AFR.AMER. > 60 ML/MIN (>=60 (CALC)); MAGNESIUM 1.8 mg/dL (1.6-2.3); POTASSIUM 3.4 mmol/l (3.5-5.1); SODIUM 140 mmol/l (137-146)
[2019-11-01 05:39] LABS: ALBUMIN 2.1 g/dL (3.2-5.0); SGOT/AST 35 u/l (14-36); TOTAL PROTEIN 5.3 g/dL (6.3-8.2)
[2019-11-01 07:53] VITALS: BP 127/66
[2019-11-01 15:30] VITALS: BP 133/69
[2019-11-01 19:37] VITALS: BP 121/71
[2019-11-02 00:15] VITALS: BP 136/75
[2019-11-02 04:55] VITALS: BP 118/76
[2019-11-02 07:45] VITALS: BP 128/67
[2019-11-02 09:11] LABS: HEMATOCRIT 27.9 % (37.0-47.0); HEMOGLOBIN 8.5 g/dl (12.0-16.0); MEAN CELL VOLUME 87.7 fL CALC (80.0-100.0); MEAN CORPUSCULAR HGB 26.7 pG CALC (26.0-32.0); MEAN CORPUSCULAR HGB CONC 30.5 g/L CALC (32.0-36.0); RED BLOOD COUNT 3.18 mill/uL (4.20-5.60); RED CELL DISTRI WIDTH 16.2 % (11.5-15.5)
[2019-11-02 09:26] LABS: ANION GAP 11 (6-22 (CALC)); BUN 2 mg/dL (7-17); BUN/CREATININE RATIO 4 (12-20 (CALC)); CHLORIDE 108 mmol/l (95-108); CREATININE 0.6 mg/dL (0.5-1.0); GFR > 60 ML/MIN (>=60 (CALC)); GFR FOR AFR.AMER. > 60 ML/MIN (>=60 (CALC)); POTASSIUM 3.9 mmol/l (3.5-5.1); SODIUM 139 mmol/l (137-146)
[2019-11-02 09:27] LABS: CARBON DIOXIDE 24 mmol/l (22-30)
[2019-11-02 15:17] VITALS: BP 128/51
[2019-11-02 18:51] VITALS: BP 155/56
[2019-11-03 03:48] VITALS: BP 141/80
[2019-11-03 08:58] VITALS: BP 110/65
[2019-11-03 09:02] VITALS: BP 110/65
[2019-11-03] MEDS ORDERED: ROCEPHIN1 G1 IV (11:52)
[2019-11-03] MEDS ORDERED: CUBICIN500 MG IV (11:52)
[2019-11-03] MEDS ORDERED: PERCOCET 5/325M1 TAB PO (11:55)
== END 2019-11-03 16:55 | disposition home health service (06) | DRG 858 ==
LOC: MS2 13:09
PROVIDERS: Internal Medicine; Nurse Practitioner Family; ADMIT Surgery; ATTEND Surgery
PROC: 0WPF0JZ Removal of Synthetic Substitute from Abdominal Wall, Open Approach (ICD-10-PCS; principal; 2019-10-27)
PROC: 0T9B70Z Drainage of Bladder with Drainage Device, Via Natural or Artificial Opening (ICD-10-PCS; 2019-10-27)
PROC: 05H933Z Insertion of Infusion Device into Right Brachial Vein, Percutaneous Approach (ICD-10-PCS; 2019-10-28)
PROC: 2W03X6Z Change Pressure Dressing on Abdominal Wall (ICD-10-PCS; 2019-10-30)
DX: T81.42XA Infection following a procedure, deep incisional surgical site, initial encounter (principal); I10 Essential (primary) hypertension; E11.51 Type 2 diabetes mellitus with diabetic peripheral angiopathy without gangrene; E11.40 Type 2 diabetes mellitus with diabetic neuropathy, unspecified; J44.9 Chronic obstructive pulmonary disease, unspecified; K59.00 Constipation, unspecified; E83.42 Hypomagnesemia; R91.8 Other nonspecific abnormal finding of lung field; F17.200 Nicotine dependence, unspecified, uncomplicated; E66.9 Obesity, unspecified; B96.1 Klebsiella pneumoniae [K. pneumoniae] as the cause of diseases classified elsewhere; B95.62 Methicillin resistant Staphylococcus aureus infection as the cause of diseases classified elsewhere; Y83.2 Surgical operation with anastomosis, bypass or graft as the cause of abnormal reaction of the patient, or of later complication, without mention of misadventure at the time of the procedure; Z79.4 Long term (current) use of insulin; Z95.820 Peripheral vascular angioplasty status with implants and grafts; Z99.81 Dependence on supplemental oxygen; Z91.81 History of falling; Z68.38 Body mass index [BMI] 38.0-38.9, adult
CPT/HCPCS: J0131; J1650; J2710; J3475; Q3014

== ENCOUNTER 2019-11-26 | Day surgery (SDC) | payer MEDICARE ==
[~2019-11-26] MED LIST changes: +CUBICIN500 MG IV; +ROCEPHIN1 G1 IV
[2019-11-26] MEDS ORDERED: [UNRECOGNIZED DRUG - OTHER] (09:33)
[2019-11-26] MEDS ORDERED: [UNRECOGNIZED DRUG - OTHER] TOP (09:35)
[2019-11-26] MEDS ORDERED: PERCOCET 5/325M1 TAB PO (09:35)
== END 2019-11-26 10:25 | disposition home or self-care (01) ==
PROC: 0JB80ZZ Excision of Abdomen Subcutaneous Tissue and Fascia, Open Approach (ICD-10-PCS; principal; 2019-11-26)
DX: T81.41XA Infection following a procedure, superficial incisional surgical site, initial encounter (principal); I10 Essential (primary) hypertension; E11.9 Type 2 diabetes mellitus without complications; F17.200 Nicotine dependence, unspecified, uncomplicated; Y83.8 Other surgical procedures as the cause of abnormal reaction of the patient, or of later complication, without mention of misadventure at the time of the procedure; Z79.4 Long term (current) use of insulin

== ENCOUNTER 2019-12-11 | Observation (INO) | payer MEDICARE ==
[2019-12-11] VITALS (8 sets, daily range): BP systolic 111–138; BP diastolic 44–72
[~2019-12-11] MED LIST changes: +[UNRECOGNIZED DRUG - OTHER]; +[UNRECOGNIZED DRUG - OTHER] TOP
[2019-12-12 03:49] VITALS: BP 141/76
== END 2019-12-12 13:35 | disposition home health service (06) ==
PROVIDERS: ADMIT Surgery
PROC: 0JB80ZZ Excision of Abdomen Subcutaneous Tissue and Fascia, Open Approach (ICD-10-PCS; principal; 2019-12-11)
PROC: 0HB5XZX Excision of Chest Skin, External Approach, Diagnostic (ICD-10-PCS; 2019-12-11)
PROC: 05HN33Z Insertion of Infusion Device into Left Internal Jugular Vein, Percutaneous Approach (ICD-10-PCS; 2019-12-11)
PROC: B544ZZA Ultrasonography of Left Jugular Veins, Guidance (ICD-10-PCS; 2019-12-11)
DX: L76.82 Other postprocedural complications of skin and subcutaneous tissue (principal); E11.52 Type 2 diabetes mellitus with diabetic peripheral angiopathy with gangrene; I96 Gangrene, not elsewhere classified; R23.4 Changes in skin texture; I10 Essential (primary) hypertension; Y83.9 Surgical procedure, unspecified as the cause of abnormal reaction of the patient, or of later complication, without mention of misadventure at the time of the procedure; Z79.4 Long term (current) use of insulin
CPT/HCPCS: G0378

== ENCOUNTER 2019-12-23 18:06 | Inpatient (IN) | payer MEDICARE ==
[~2019-12-23] VITALS: Ht 162.6 cm; Wt 71.0 kg
--- NOTE | 2019-12-23 18:27 | NUR ---
PT TO ROOM VIA WC
--- NOTE | 2019-12-23 19:25 | NUR ---
A/O F WITH WEAKNESS,POSSIBLE DEHYDRTATION UNABLE TO TOLERATE PO INTAKE TODAY TOOK NO MEDS TODAY PT HAS NAUSEA NO VOMITING NO FOCAL WEAKNESSES GCS IS 15.
[2019-12-23 20:01] LABS: HEMATOCRIT 32.5 % (37.0-47.0); HEMOGLOBIN 9.8 g/dl (12.0-16.0); IMMATURE GRANULOCYTES 1.4 % (0.0-5.0); MEAN CELL VOLUME 77.8 fL CALC (80.0-100.0); MEAN CORPUSCULAR HGB 23.4 pG CALC (26.0-32.0); MEAN CORPUSCULAR HGB CONC 30.2 g/L CALC (32.0-36.0); NEUT# 15.42 thou/uL (2.00-7.15); RED BLOOD COUNT 4.18 mill/uL (4.20-5.60); RED CELL DISTRI WIDTH 19.3 % (11.5-15.5)
[2019-12-23 20:22] LABS: ALBUMIN 2.9 g/dL (3.2-5.0); ALKALINE PHOSPHATASE 282 u/l (38-126); ANION GAP 14 (6-22 (CALC)); BILIRUBIN, TOTAL 0.6 mg/dL (0.0-1.4); BUN 23 mg/dL (7-17); BUN/CREATININE RATIO 19 (12-20 (CALC)); CARBON DIOXIDE 29 mmol/l (22-30); CHLORIDE 93 mmol/l (95-108); CREATININE 1.2 mg/dL (0.5-1.0); GFR 47 ML/MIN (>=60 (CALC)); GFR FOR AFR.AMER. 56 ML/MIN (>=60 (CALC)); SGOT/AST 18 u/l (14-36); SODIUM 133 mmol/l (137-146); TOTAL PROTEIN 7.5 g/dL (6.3-8.2)
[2019-12-23 20:23] LABS: POTASSIUM 3.3 mmol/l (3.5-5.1)
[2019-12-23 20:36] LABS: MYOGLOBIN 62 ng/mL (0 - 62)
--- NOTE | 2019-12-23 20:58 | NUR ---
W/P/D SKIN SR NO ECTOPY NO N/V
--- NOTE | 2019-12-23 21:55 | NUR ---
MEDICATED FOR PAIN AT DEBRIDEMENT SITE ABD W/P/D SKIN PAIN IS RESOLVED
--- NOTE | 2019-12-23 22:57 | NUR ---
W/D SKIN NO N/V PAIN HAS RESOLVED.IV INFUSING IF POSITIONAL AT TIMES IV SITE UNREMARKABLE
--- NOTE | 2019-12-23 23:50 | NUR ---
PENDING ADM PT IS ASLEEP AND IN NO DISCOMFORT SR NO ECTOPY
[2019-12-24] VITALS: BP 115/61; BP 134/68
--- NOTE | 2019-12-24 00:20 | NUR ---
PHONE [id number] TO NURSE HOSEA ON MS
--- NOTE | 2019-12-24 00:25 | NUR ---
PT TRANSPORTED TO [place] [facility] IN STABLE CONDITION
--- NOTE | 2019-12-24 00:26 | NUR ---
PT ARRIVED TO FLOOR VIA STRETCHER ACCOMPANIED BY ER STAFF. PT ALERT TO SELF AND PLACE. PT HAS FLAT AFFECT AND IS DROWSY. ASSISTED PT FROM STRETCHER TO BED X2 PERSON ASSIST. ORIENTED PT TO ROOM AND CALL LIGHT SYSTEM. DISCUSSED POC. WILL CONTINUE TO MONITOR.
--- NOTE | 2019-12-24 04:21 | NUR ---
PT RESTING IN BED WITH EYES CLOSED. NO APPARENT DISTRESS NOTED. CALL LIGHT WITHIN REACH. WILL CONTINUE TO MONITOR.
[2019-12-24 04:30] VITALS: BP 120/61
[2019-12-24 07:30] VITALS: BP 105/84
--- NOTE | 2019-12-24 07:30 | NUR ---
PT ASSESSMENT IS COMPLETED: IV SITE IS FREE FROM REDNESS OR EDEMA HR IS RE,GPULSES ARE STRONG X4, ABD IS SOFT WITH ACTIVE BS. BREATH SOUNDS ARE CLEAR,BILATERALLY. CONTINUE TO OSBERVE AND MONITOR.
--- NOTE | 2019-12-24 09:37 | NUR ---
REMOVED IV SITE IN LH NOT FLUSHABLE.
--- NOTE | 2019-12-24 12:15 | NUR ---
PT IS BEING VISITED BY DR BROWN AND VIRAL DOAN. AND NEW ORDER FOR A PICC LINE PLACED. PT TAKEN TO XRAY VIA WC WITH STAFF. CONTINUE TO OBSERVE AND MONITOR.
--- NOTE | 2019-12-24 12:45 | NUR ---
PICC LINE PLACED ON DAHLIA. WITH SINGLE LUMEN. PT TOLERATED WELL. RESTARTED ABT AND IV FLUIDS. CONTINUE TO OBSERVE AND MONITOR.
--- NOTE | 2019-12-24 15:49 | NUR ---
S: JULIO LOPEZ is a 54 F who presents with postoperative wound infection. She has a history of HTN, +TOB fibromyalgia DM. All medications in patient's chart were reviewed. O: VS: BP:105/84 mmHg, P:87 bpm, RR:18 breath per minute,T:97.8 F W:70.987 kg, HT:64 in, Scr=1.2 mg/dL,CrCl=53.3 ml/min A: Blood culture is pending. P: Patient is on Zosyn 3.375 GM IV Q6H. Vancomycin ordered for pharmacy to dose. Start Vancomycin 1,000 MG IV Q24H. Vancomycin trough is drawn before the 4th dose on 12/26/19 AT 2130. Vancomycin goal trough is between 10-15 mcg/ml. Pharmacy will follow and or advise on antibiotics use as needed.
[2019-12-24 16:00] VITALS: BP 102/60
[2019-12-24 19:28] VITALS: BP 93/57
--- NOTE | 2019-12-24 21:30 | NUR ---
PT. SLEEPING AND AWAKENED FOR ASSESSMENT AND SCHED MEDS; PT. REMAINS SLIGHTLY DROWSY. PULLED UP IN BED AND MEDS GIVEN. MIDLINE TO DAHLIA IS INTACT AND CIRCUMFERENCE MEASURES 26.5CMS. IV SITE TO RAC REMOVED WITH CATHETER TIP INTACT. DRESSING TO ABDOMEN, LEFT BREAST, AND COCCYX ARE ALL CDI. PT. C/O ABD PAIN AND MEDICATED WITH ORDERED PRN PERCOCET, WILL REASSESS. PO FLUIDS ENCOURAGED. O2 INFUSING PER NC PER ORDER. ENCOURAGED TO CALL FOR ANY NEEDS. BED ALARM IN PLACE.
[2019-12-24 23:47] VITALS: BP 106/66
--- NOTE | 2019-12-24 23:48 | NUR ---
RESTING IN BED WITH NO DISTRESS NOTED WITH EYES CLOSED; VSS. DRESSING TO ABD REMAINS CDI. CALL LIGHT IS IN REACH.
--- NOTE | 2019-12-25 02:15 | NUR ---
RESTING IN BED WITH EYES CLOSED; RESP. EVEN AND UNLABORED. CALL LIGHT IS IN REACH.
--- NOTE | 2019-12-25 03:34 | NUR ---
PT. UP IN THE BATHROOM AND HAD SNAPPED IV TUBING IN HALF. PT. VOIDED IN TOILET, UNSUCCESSFUL WITH ATTEMPT TO COLLECT URINE SAMPLE. MIDLINE INTACT AND FLUSHED AND IVF RE-CONNECTED. BED ALARM ON. CALL LIGHT IS IN REACH.
[2019-12-25 03:41] VITALS: BP 102/66
--- NOTE | 2019-12-25 04:06 | NUR ---
c/o abd pain and medicated with ordered prn percocet. also provided with yogurt and fresh water. call light is in reach. bed alarm on.
[2019-12-25 05:39] LABS: HEMATOCRIT 27.6 % (37.0-47.0); HEMOGLOBIN 7.9 g/dl (12.0-16.0); MEAN CELL VOLUME 82.1 fL CALC (80.0-100.0); MEAN CORPUSCULAR HGB 23.5 pG CALC (26.0-32.0); MEAN CORPUSCULAR HGB CONC 28.6 g/L CALC (32.0-36.0); RED BLOOD COUNT 3.36 mill/uL (4.20-5.60); RED CELL DISTRI WIDTH 19.9 % (11.5-15.5)
[2019-12-25 05:40] LABS: ANION GAP 11 (6-22 (CALC)); BUN 16 mg/dL (7-17); BUN/CREATININE RATIO 19 (12-20 (CALC)); CARBON DIOXIDE 24 mmol/l (22-30); CHLORIDE 104 mmol/l (95-108); CREATININE 0.8 mg/dL (0.5-1.0); GFR > 60 ML/MIN (>=60 (CALC)); GFR FOR AFR.AMER. > 60 ML/MIN (>=60 (CALC)); MAGNESIUM 1.5 mg/dL (1.6-2.3); POTASSIUM 3.8 mmol/l (3.5-5.1); SODIUM 135 mmol/l (137-146)
[2019-12-25 07:31] VITALS: BP 111/69
--- NOTE | 2019-12-25 08:45 | NUR ---
DR. CHOW AT BEDSIDE TO ASSESS PT AND PT IN ROOM
[2019-12-25 09:47] LABS: URINE BILIRUBIN - DIPSTICK NEGATIVE (NEGATIVE); URINE BLOOD DIPSTICK NEGATIVE (NEGATIVE); URINE COLOR YELLOW; URINE GLUCOSE - DIPSTICK NEGATIVE (NEGATIVE); URINE KETONE NEGATIVE (NEGATIVE); URINE LEUK ESTERASE TRACE (NEGATIVE); URINE NITRITE - DIPSTICK NEGATIVE (Negative); URINE PH 5.5 (4.5-8.0); URINE PROTEIN - DIPSTICK NEGATIVE (NEG-TRACE); URINE UROBILINOGEN - DIPSTICK 0.2 E.U./dL (0.2)
--- NOTE | 2019-12-25 10:00 | NUR ---
ASSESSMENT DONE. PT IS A&O X3. PT STATED PAIN IN ABD. MEDICATED PT WITH PERCOCET. 02 AT 2L VIA NC. CHANGE DRESSING IN ABD, BREAST, AND BUTTOCKS. PT TOLERATED WELL. IVF INFUSING. PT IN ROOM. CALL LIGHT IN REACH.
[2019-12-25 10:01] LABS: BARBITURATES NEGATIVE (NEGATIVE); COCAINE NEGATIVE (NEGATIVE); METHADONE NEGATIVE (NEGATIVE); TETRAHYDROCANNABIONOL NEGATIVE (NEGATIVE); TRICYLIC ANTIDEPRESSANTS POSITIVE (NEGATIVE); URINE BACTERIA FEW hpf; URINE EPITHELIAL CELLS MODERATE EPI/hpf (0-FEW); URINE MUCUS MODERATE hpf (NONE-FEW)
[2019-12-25 10:02] LABS: OXCYCODONE POSITIVE (NEGATIVE)
[2019-12-25] MEDS ORDERED: ELAVIL25 M1 PO (10:47)
[2019-12-25] MEDS ORDERED: SANTYL250 UNIT/G TOP (10:49)
--- NOTE | 2019-12-25 11:45 | NUR ---
PT IS RESTING IN BED WITH NO S/S OF DISTRESS NOTED. PT DENIES ANY NEEDS AT THIS TIME CALL LIGHT IN REACH.
[2019-12-25 15:22] VITALS: BP 90/61
--- NOTE | 2019-12-25 15:56 | NUR ---
PT IS SITTING IN THE RECLINER VISITING WITH FAMILY IN ROOM. NO S/S OF DISTRESS NOTED. CALL LIGHT IN REACH.
[2019-12-25 19:10] VITALS: BP 116/61
--- NOTE | 2019-12-25 20:01 | NUR ---
PT SLEEPING IN BED. AWAKENED TO DO ASSESSMENT. PT DROWSY BUT COOPERATIVE WITH ASSESSMENT. O2 VIA NC @2L IN PLACE. 3 DRESSINGS CDI. NO COMPLAINTS OF PAIN AT THIS TIME BY THE PT NOR SIGNS OF DISTRESS. AT BEDSIDE. DISCUSSED POC WITH BOTH. ACTIVELY INVOLVED WITH PT POC AND LAB RESULTS, LAB RESULTS GIVEN TO AND PT. EXPLAINED TO THAT NEW TESTS WILL BE DONE IN THE MORNING. VERBALIZED UNDERSTANDING AND WANTS TO BE CALLED WITH RESULTS. EXPLAINED THAT HE DOES NOT WANT PT TO BE PLACED IN REHAB AND WANTS HER TO GO HOME AND CONTINUE HH, EXPLAINED TO THAT D/C DISPOSITION CAN BE DISCUSSED WITH PHYSICIAN. ASSESSMENT COMPLETED. DISCUSSED POC. CALL LIGHT IN REACH. CONTINUE TO MONITOR.
--- NOTE | 2019-12-25 21:38 | NUR ---
PT SLEEPING WITH AT BEDSIDE. IV VANCOMYCIN INITIATED. NO DISTRESS NOTED. CONTINUE TO MONITOR.
--- NOTE | 2019-12-25 22:10 | NUR ---
REPORT RECEIVED FROMSN JESSICA. PT IS ROOM RESTING COMFORTABLY. EYES CLOSED RESPIRATION EVEN AND UNLABORED. CLEANER CARPET AND UPHOLSTERY WILL CONTINUE TO MONITOR
--- NOTE | 2019-12-25 22:25 | NUR ---
PT REPORT GIVEN TO JOAN PHILLIPS
--- NOTE | 2019-12-26 | NUR ---
ANTIBIOTIC ADMINISTERED VIA IV PER ORDER. PT RESTING COMFORTABLY. PT DENIES PAIN AT THIS TIME. PORTAL ADMINISTRATOR WILL CONTINUE TO MONITOR
[2019-12-26 03:40] VITALS: BP 124/68
--- NOTE | 2019-12-26 04:04 | NUR ---
PATIENT RESTING COMFORTABLY. NO S/S OF DISTRESS. NACL RUNNING AT 100ML/HR. WOUND DRESSING INTACT. MEDICAL EQUIPMENT TECHNICIAN WILL CONTINUE TO MONITOR
--- NOTE | 2019-12-26 07:30 | NUR ---
PT UP TO TAKE A SHOWER THIS AM.. NO DISTRESS NOTGED. IV ABLE TO BE FLUSHED WITHOUT DIFFICULTY.
[2019-12-26 09:20] LABS: HEMATOCRIT 29.5 % (37.0-47.0); HEMOGLOBIN 8.4 g/dl (12.0-16.0); IMMATURE GRANULOCYTES 1.1 % (0.0-5.0); MEAN CELL VOLUME 83.6 fL CALC (80.0-100.0); MEAN CORPUSCULAR HGB 23.8 pG CALC (26.0-32.0); MEAN CORPUSCULAR HGB CONC 28.5 g/L CALC (32.0-36.0); NEUT# 14.39 thou/uL (2.00-7.15); RED BLOOD COUNT 3.53 mill/uL (4.20-5.60); RED CELL DISTRI WIDTH 19.9 % (11.5-15.5)
[2019-12-26 09:30] VITALS: BP 106/65
--- NOTE | 2019-12-26 09:30 | NUR ---
ASSESSMENT IS COMPLETED: IV SITE IS FREE FROM REDNESS OR EDEMA. HR IS REG,PULSES ARE STRONG X4, ABD IS SOFT WITH ACTIVE BS. DRESSING ON ABD IS CLEAN AND INTACT SOME WET NESS , DRESSING ON LEFT BREAST IS CDI,. AND BUTTOCKS INTACT. BREATH SOUNDS ARE CLEAR WITH COARSE IN BASES, O2 @ 2LITERS WITH NC. CONTINUE TO OBSERVE AND MONITOR.
[2019-12-26 09:36] LABS: ANION GAP 10 (6-22 (CALC)); BUN 9 mg/dL (7-17); BUN/CREATININE RATIO 13 (12-20 (CALC)); CARBON DIOXIDE 21 mmol/l (22-30); CHLORIDE 109 mmol/l (95-108); CREATININE 0.7 mg/dL (0.5-1.0); GFR > 60 ML/MIN (>=60 (CALC)); GFR FOR AFR.AMER. > 60 ML/MIN (>=60 (CALC)); MAGNESIUM 1.5 mg/dL (1.6-2.3); POTASSIUM 3.7 mmol/l (3.5-5.1); SODIUM 137 mmol/l (137-146)
--- NOTE | 2019-12-26 09:50 | NUR ---
REMOVED DRESSING ON ABD USING CLEAN TECHNIQUE. CLEANED WITH NS AND REPLACED WITH SANTYL AND WET DRESSING KRZYSZTOF AND 4X4. COVERED WITH ABD PADS AND SECURED WITH PAPER TAPE. ALSO REMOVED DRESSING ON LEFT BREAST, REPLACED WITH 4X4 SQUARED AND WITH SANTYL. AND SECURED WITH PAPER TAPE. PT TOLERATED WELL.
--- NOTE | 2019-12-26 11:00 | NUR ---
PT TRANSPORTED TO HAVE CT SCAN OF HER HEAD DUE TO FALL AT HOME. RETURNED AT 1115
--- NOTE | 2019-12-26 12:00 | NUR ---
PT IS RELAXING IN BED WITH NO DISTRESS NOTED. IV SITE IS FREE FROM REDNESS OR EDEMA. CONTINUE TO OBSERVE AND MONITOR.
[2019-12-26 15:15] VITALS: BP 99/68
--- NOTE | 2019-12-26 16:00 | NUR ---
PT HAS BEEN VISITING WITH FAMILY, NO DISTRESS NOTED. IV SITE IS FREE FROM REDNESS OR EDEMA.
--- NOTE | 2019-12-26 18:30 | NUR ---
PT HAD TO VOID, UNABLE TO MAKE ITT O THE BATHROOM, VOIDED ONT HE SIDE OF THE BED, LINEN WAS CHANGED ON THE BOTTOM SHEET WITH CLOTH PAD. NO BM. AT THIS TIME. CHANGED THE PAD AND PANTIES. PT AMBULATED TO THE BATHROOM. CONTINUE TO OBSERVE AND MONITOR.
[2019-12-26 18:45] VITALS: BP 140/61
--- NOTE | 2019-12-26 19:38 | NUR ---
PT SITTING IN BED. A&O X3. NO DROWSINESS NOTED. NO DISTRESS NOTED. ABD AND LT BREAST DRESSINGS CDI, NO SHADOWING PRESENT.COCCYX DRESSING TO BE CHANGED TONIGHT. NO PAIN REPORTED AT THIS TIME. DISCUSSED POC. CALL LIGHT IN REACH. CONTINUE TO MONITOR.
--- NOTE | 2019-12-26 21:00 | NUR ---
ASSISTED PT TO BSC. DRESSING CHANGE DONE TO COCCYX. PT TOLERATED WELL. ASSISTED PT BACK INTO BED. CONTINUE TO MONITOR.
--- NOTE | 2019-12-26 22:20 | NUR ---
AWAITING [facility]
--- NOTE | 2019-12-26 22:25 | NUR ---
VANCRODRIOUGH RESULTS 11 AND WITHIN NORMAL LIMITS. WILL INITIATE VANCO
--- NOTE | 2019-12-27 00:31 | NUR ---
PT SLEEPING IN BED O2 APPLIED VIA NC @2L. NO DISTRESS NOTED. CONTINUE TO MONITOR.
--- NOTE | 2019-12-27 02:07 | NUR ---
PT SLEEPING IN BED. NO DISTRESS NOTED. RESP EVEN AN UNLABORED. CONTINUE TO MONITOR.
[2019-12-27 04:20] VITALS: BP 131/73
--- NOTE | 2019-12-27 06:00 | NUR ---
ASSISTED PT TO BSC, UNSTEADY GAIT. EXPLAINED TO PT THAT IF SHE HAD TO GET UP TO PRESS THE CALL LIGHT TO BE ASSISTED. PT VERBALIZED UNDERSTANDING.
[2019-12-27 07:50] VITALS: BP 121/65
--- NOTE | 2019-12-27 07:50 | NUR ---
ASSESSMENT IS COMPLETED: IV SITE IS FREE FROM REDNESS OR EDEMA. HR IS REG,PULSES ARE STRONG X4, ABD IS SOFT WITH ACTIVE BS. DRESSING IS INTACT. DRESSING ON L BREAST IS CDI. AND BUTTOCKS WAS CHANGED DURING THE NIGHT. BREATH SOUNDS ARE CLEAR AND DIMINISHED. CONTIUE TO OBSERVE AND MONITOR.
--- NOTE | 2019-12-27 12:40 | NUR ---
PT IS RELAXING IN BED , NO DISTRESS NOTED. IV SITE IS FREE FROM REDNESS OR EDEMA.CONTINUE TO OBSERVE AND MONITOR.
[2019-12-27 15:30] VITALS: BP 132/82
--- NOTE | 2019-12-27 16:40 | NUR ---
PT IS RELAXING IN BED WITH NO DISTRESS NOTED. IV SITE IS FREE FROM REDNESS OR EDEMA.
--- NOTE | 2019-12-27 16:45 | NUR ---
RMOVED OLD DRESSING ON ABD, CLEANED WITH NS. AND REPLACED WITH SANTYL AND WET DRESSING COVEREDW ITH ABD PADS. SECURED WITH PAPER TAPE , USING CLEAN TECHNIQUE. PT TOLERATED WELL. THEN CHANGED THE DRESSING ON THE LEFT BREAST WITH 4X4 AND SANTYL. SECURED WTH PAPER TAPE. PT TOLERATED WELL. USING CLEAN TECHNIQUE. CONTINUE TO OBSERVE AND MONITOR.
[2019-12-27 18:39] VITALS: BP 101/57
--- NOTE | 2019-12-27 19:20 | NUR ---
PT SLEEPING IN BED. O2 VIA NC @2L IN PLACE. AWAKENED TO DO ASSESSMENT. A&O X3. NO DISTRESS NOTED. PT DENIES ANY PAIN AT THIS TIME. COARSE BREATH SOUNDS HEARD IN BOTH LOWER LOBES UPON AUSCULTATION. DRESSINGS CDI WITH NO SHADOWING PRESENT. EXPLAINED TO PT THAT IF SHE WANTED TO USE THE BSC TO PRESS THE CALL LIGHT BUTTON. PT VERBALIZED UNDERSTANDING. DISCUSSED POC. ASSESSMENT COMPLETED. CALL LIGHT IN REACH. CONTINUE TO MONITOR.
--- NOTE | 2019-12-27 21:00 | NUR ---
PT SLEEPING IN BED. AWAKENED TO GIVE PM MEDICATIONS. PT DROWSY WITH GARBLED SPEECH. STATES SHE IS "SLEEPY". CALL LIGHT IN REACH. CONTINUE TO MONITOR.
--- NOTE | 2019-12-28 01:30 | NUR ---
PT SLEEPING IN BED. NO DISTRESS NOTED. RESP EVEN AND UNLABORED. CONTINUE TO MONITOR.
[2019-12-28 03:35] VITALS: BP 126/64
--- NOTE | 2019-12-28 08:00 | NUR ---
PT IS SITTING IN THE CHAIR, WANTING TO GO BACK TO BED, INFORMED SHE NEEDS TO STAY UP IN THE CHAIR, IV SITE IS FREE FROM REDNESS OR EDEMA. HR IS REG,PULSES ARE STRONG X4, ABD IS SOFT WITH ACTIVE BS. PT HAS A DRESSING IN PLACE THAT IS CDI.CONTINUE TO OBSERVE AND MONITOR.
--- NOTE | 2019-12-28 08:27 | NUR ---
DR CHOW IN THE UNIT. SHOWED THE PICTURES OF HER ABD AND LEFT BREAST STARTING TO IMPROVE
--- NOTE | 2019-12-28 10:46 | NUR ---
DR RAMÍREZ IN TO VISIT WITH PT. ENCOURAGING HER TO EAT AND GET CALORIES FOR HEALING.
[2019-12-28 11:46] LABS: HEMATOCRIT 33.8 % (37.0-47.0); HEMOGLOBIN 9.7 g/dl (12.0-16.0); IMMATURE GRANULOCYTES 1.1 % (0.0-5.0); MEAN CELL VOLUME 82.4 fL CALC (80.0-100.0); MEAN CORPUSCULAR HGB 23.7 pG CALC (26.0-32.0); MEAN CORPUSCULAR HGB CONC 28.7 g/L CALC (32.0-36.0); NEUT# 11.05 thou/uL (2.00-7.15); RED BLOOD COUNT 4.1 mill/uL (4.20-5.60); RED CELL DISTRI WIDTH 20.3 % (11.5-15.5)
[2019-12-28 12:27] LABS: ANION GAP 12 (6-22 (CALC)); BUN 5 mg/dL (7-17); BUN/CREATININE RATIO 8 (12-20 (CALC)); CARBON DIOXIDE 23 mmol/l (22-30); CHLORIDE 107 mmol/l (95-108); CREATININE 0.6 mg/dL (0.5-1.0); GFR > 60 ML/MIN (>=60 (CALC)); GFR FOR AFR.AMER. > 60 ML/MIN (>=60 (CALC)); MAGNESIUM 1.5 mg/dL (1.6-2.3); POTASSIUM 3.5 mmol/l (3.5-5.1); SODIUM 137 mmol/l (137-146)
--- NOTE | 2019-12-28 12:30 | NUR ---
PT IS RELAXING IN BED VISITING WITH FAMILY NO DISTRESS NOTED. IV SITE IS FREE FROM REDNESS OR EDMEA.
--- NOTE | 2019-12-28 14:45 | NUR ---
REMOVED DRESSING ON BUTTOCKS.PICTURE OBTAIEND REPLACED WTIH FOAM DRESSING AND OINTMENT USED CLEAN TECHNIQUE. PT TOLERATED WELL.
[2019-12-28 15:00] VITALS: BP 131/70
--- NOTE | 2019-12-28 15:00 | NUR ---
REMOVED DRESSING ON ABD AND LEFT BREAST. APPLIED SANTYL AND WET DRESSING WITH NS TO AFFECTED AREAS. PLACED KRZYSZTOF WET WITH NS. ON TOP OF THE PINK AREAS. USING CLEAN TECHNIQUE . COVERED WITH ABD PADS AND SECURED WITH PAPER TAPE. PT TOLERATED WELL.
--- NOTE | 2019-12-28 16:00 | NUR ---
PT IS SITTING IN THE CHAIR. NO DISTRESS NOTED. IV SITE IS FREE FROM REDNESS OR EDEMA.
--- NOTE | 2019-12-28 19:00 | NUR ---
RECEIVED REPORT FROM DAY SHIFT NURSE PATIENT APPEARS TO BE SLEEPING WITH EYES CLOSED CALL LIGHT AT REACH.
[2019-12-28 19:21] VITALS: BP 99/55
--- NOTE | 2019-12-28 21:00 | NUR ---
PATIENT AWAKE AT THIS TIME, ABLE TO MAKE NEEDS KNOWN, WITH ONGOING IV NS @ 100CC/HR INFUSING WELL PICC LINE ON DAHLIA, BS 315, ABDOMINAL DRESSING CDI. C/O ABDOMINAL PAIN PS 8/10 PRN PERCOCET GIVEN WILL REEVALUATE.
--- NOTE | 2019-12-28 22:10 | NUR ---
MIDLINE DRESSING CHANGED AT THIS TIME.
--- NOTE | 2019-12-29 02:11 | NUR ---
PATIENT APPEARS TO BE SLEEPING WITH EYES CLOSED, WITH EVEN UNLABORED BREATHING CALL LIGHT AT REACH.
[2019-12-29 04:00] VITALS: BP 148/63
--- NOTE | 2019-12-29 04:00 | NUR ---
PATIENT SLEEPING WITH EYES CLOSED, NO DISCOMFORTS NOTED AT THIS TIME, EVEN UNLABORED BREATHING CALL LIGHT AT REACH.
[2019-12-29 05:42] LABS: HEMATOCRIT 28.7 % (37.0-47.0); HEMOGLOBIN 8.4 g/dl (12.0-16.0); IMMATURE GRANULOCYTES 1.7 % (0.0-5.0); MEAN CELL VOLUME 80.8 fL CALC (80.0-100.0); MEAN CORPUSCULAR HGB 23.7 pG CALC (26.0-32.0); MEAN CORPUSCULAR HGB CONC 29.3 g/L CALC (32.0-36.0); NEUT# 7.61 thou/uL (2.00-7.15); RED BLOOD COUNT 3.55 mill/uL (4.20-5.60)
[2019-12-29 05:57] LABS: ALKALINE PHOSPHATASE 210 u/l (38-126); ANION GAP 10 (6-22 (CALC)); BUN 5 mg/dL (7-17); BUN/CREATININE RATIO 10 (12-20 (CALC)); CARBON DIOXIDE 23 mmol/l (22-30); CHLORIDE 108 mmol/l (95-108); CREATININE 0.5 mg/dL (0.5-1.0); GFR > 60 ML/MIN (>=60 (CALC)); GFR FOR AFR.AMER. > 60 ML/MIN (>=60 (CALC)); POTASSIUM 3.7 mmol/l (3.5-5.1); SGOT/AST 16 u/l (14-36); SODIUM 138 mmol/l (137-146)
[2019-12-29 06:00] LABS: ALBUMIN 1.9 g/dL (3.2-5.0); BILIRUBIN, TOTAL 0.2 mg/dL (0.0-1.4); TOTAL PROTEIN 5.2 g/dL (6.3-8.2)
--- NOTE | 2019-12-29 07:00 | NUR ---
SHIFT CHANGE REPORT, PT SLEEPING, BREATHING EVEN AND NON-LABORED, IVF INFSING, NO SIGN DISCOMFORT, CALL BLAIR IN REACH AND BED IN LOWEST POSITION.
[2019-12-29 07:47] VITALS: BP 138/80
--- NOTE | 2019-12-29 11:23 | NUR ---
I ENTERED THE CONSULT FOR , INFECTIOUS DISEASE @1122 AM. I AM NOW WAITING FOR A CONFIRMATION FROM HIM TO DO THE CONSULT WITH PT/NURSE. I NOTIFIED THE NURSE NITESH MAYEN RN ABOUT THE CONSULT ORDERED AND SHE VERIFIED THAT SHE WAS AWARE. I WILL UPDATE HER WHEN I GET A CONFIRMATION FROM THE PHYSICIAN.
--- NOTE | 2019-12-29 12:00 | NUR ---
SAT UP IN RECLINER, STAFF ASSISTED WITH AMBULATION IN HALLWAYS, THEN PT REQUESTED TO RETURN TO BED.
[2019-12-29 15:32] VITALS: BP 117/72
--- NOTE | 2019-12-29 16:00 | NUR ---
RESTING IN BED, ID DOCTOR CONTACTED VIA ELECTRONIC MEDIUM AND DISCUSSED D/C PLANS, STATED HE WOULD WRITE NOTES OF PLAN, PT INVOLVED IN CONSULT AND STATED UNDERSTANDING.
[2019-12-29 19:00] VITALS: BP 107/58
--- NOTE | 2019-12-29 19:15 | NUR ---
CHANGE OF SHIFT REPORT RECEIVED FROM JACQUELINE DOWLING. PATIENT SITTING UP IN BED. PT IS ABLE TO MAKE HER NEEDS KNOWN. CALL LIGHT WITHIN EASY REACH, BED IN LOWEST POSITION
--- NOTE | 2019-12-29 23:00 | NUR ---
VANCO STARTED AFTER VANCO TROUGH RESULT. TROUGH RESULT IS WNL AT 10.
--- NOTE | 2019-12-30 00:04 | NUR ---
ANTIBIOTIC RUNNING PER ORDER. PT RESTING COMFORTABLY. PATIENT DENIES PAIN. INSTRUCTIONAL AIDE WILL CONTINUE TO MONITOR.
--- NOTE | 2019-12-30 04:00 | NUR ---
PATIENT RESTING COMFORTABLY. NO S/S OF PAIN OR DISTRESS. OPHTHALMIC SURGEON WILL CONTINUE TO MONITOR
[2019-12-30 04:01] VITALS: BP 104/61
[2019-12-30 05:09] LABS: HEMATOCRIT 26.5 % (37.0-47.0); HEMOGLOBIN 7.9 g/dl (12.0-16.0); MEAN CELL VOLUME 79.8 fL CALC (80.0-100.0); MEAN CORPUSCULAR HGB 23.8 pG CALC (26.0-32.0); MEAN CORPUSCULAR HGB CONC 29.8 g/L CALC (32.0-36.0); NEUT# 10.21 thou/uL (2.00-7.15); RED BLOOD COUNT 3.32 mill/uL (4.20-5.60)
[2019-12-30 05:32] LABS: ANION GAP 10 (6-22 (CALC)); BUN 7 mg/dL (7-17); BUN/CREATININE RATIO 14 (12-20 (CALC)); CARBON DIOXIDE 25 mmol/l (22-30); CHLORIDE 107 mmol/l (95-108); CREATININE 0.5 mg/dL (0.5-1.0); GFR > 60 ML/MIN (>=60 (CALC)); GFR FOR AFR.AMER. > 60 ML/MIN (>=60 (CALC)); MAGNESIUM 1.7 mg/dL (1.6-2.3); POTASSIUM 4.2 mmol/l (3.5-5.1); SODIUM 137 mmol/l (137-146)
--- NOTE | 2019-12-30 07:10 | NUR ---
SHIFT CHANGE REPORT, PT AWAKE ALERT AND ORIENTED STANDING BY SINK DOING AM CARE, IV ABT INFUSING, NEEDS ADDRESSED, CALL BLAIR IN REACH.
[2019-12-30 08:35] VITALS: BP 116/62
--- NOTE | 2019-12-30 12:00 | NUR ---
DR CHOW ROUNDED, DISCUSSED PLANNED SURGICAL PROCEDURE WITH PT WHO STATED UNDERSTANDING, ALL NEEDS ADDRESSED.
[2019-12-30] MEDS ORDERED: PERCOCET 10/31 COMBO PO (12:49)
[2019-12-30] MEDS ORDERED: LYPHOCIN1 GM IJ (12:49)
[2019-12-30] MEDS ORDERED: CEFEPIME2 GM IM (12:49)
[2019-12-30 15:15] VITALS: BP 137/75
--- NOTE | 2019-12-30 16:00 | NUR ---
RESTING IN BED, NO C/O DISCOMFORT, ALL NEEDS ADDRESSED.
[2019-12-30 19:27] VITALS: BP 129/69
[2019-12-31] VITALS (9 sets, daily range): BP systolic 112–143; BP diastolic 54–99
[2019-12-31 05:13] LABS: HEMATOCRIT 27.1 % (37.0-47.0); HEMOGLOBIN 8.1 g/dl (12.0-16.0); MEAN CELL VOLUME 79.7 fL CALC (80.0-100.0); MEAN CORPUSCULAR HGB 23.8 pG CALC (26.0-32.0); MEAN CORPUSCULAR HGB CONC 29.9 g/L CALC (32.0-36.0); RED BLOOD COUNT 3.4 mill/uL (4.20-5.60); RED CELL DISTRI WIDTH 20.1 % (11.5-15.5)
[2019-12-31 05:22] LABS: ANION GAP 9 (6-22 (CALC)); BUN 9 mg/dL (7-17); BUN/CREATININE RATIO 17 (12-20 (CALC)); CARBON DIOXIDE 24 mmol/l (22-30); CHLORIDE 108 mmol/l (95-108); CREATININE 0.5 mg/dL (0.5-1.0); GFR > 60 ML/MIN (>=60 (CALC)); GFR FOR AFR.AMER. > 60 ML/MIN (>=60 (CALC)); MAGNESIUM 1.7 mg/dL (1.6-2.3); POTASSIUM 4.2 mmol/l (3.5-5.1); SODIUM 136 mmol/l (137-146)
--- NOTE | 2019-12-31 05:29 | NUR ---
PT HAD A LARGE INCONTINENT EPISODE IN BED TOTAL BED CHANGE PT STATES SHE WAS UNABLE TO GET UP TO USE THE RESTROOM TO URINATE. TEACHING FOR USE OF CALL LIGHT TO ASSIST WITH TRANSFER TO BEDSIDE COMMODE/RESTROOM.
--- NOTE | 2019-12-31 07:00 | NUR ---
SHIFT CHANGE REPORT, PT RESTING IN SUPINE POSITION IN BED WITH EYES CLOSED, RESPONDS TO VERBAL STIMULI, ORIENTED, DENIES PAIN AT THIS TIME, ALL NEEDS ADDRESSED, BED IN LOWEST POSITION AND CALL BLAIR IN REACH.
--- NOTE | 2019-12-31 10:43 | NUR ---
OR STAFF HERE NOW, JUST RECEIVED PT AND TRANSFERRING HER OFF UNIT IN BED TO OR.
--- NOTE | 2019-12-31 13:00 | NUR ---
RETURNED TO UNIT FROM PACU @ 1300 BY PACU STAFF VIA BED. PT SEDATED BUT RESPONDS TO VERBAL STIMULI, ORIENTED, DRESSING TO ABDOMEN CDI, IVF INFUSING, POST-OP VITALS BEING DONE. BEDSIDE REPORT RECEIVED FROM BHARAT WHO REPORTED EBL =5, IV FLUIDS IN = 500, OUTPUT = 0 SPOUSE AT BEDSIDE, WILL CONTINUE TO MONITOR
--- NOTE | 2019-12-31 18:50 | NUR ---
Discharge instructions given. Patient verbalizes understanding of same. Discharged in stable condition via Wheelchair to Home with spouse. All belongings sent with pt. PT LEFT WITH MIDLINE IN PLACE ORDERED FOR CONTINUED IV ABT.
== END 2019-12-31 18:29 | disposition home health service (06) | DRG 856 ==
LOC: ED 18:06 → ED-I 21:09 → ED 21:26 → MS2 21:27
PROVIDERS: Family Medicine; Nurse Practitioner Family; ADMIT Internal Medicine; ATTEND Internal Medicine
PROC: 05HB33Z Insertion of Infusion Device into Right Basilic Vein, Percutaneous Approach (ICD-10-PCS; 2019-12-24)
PROC: 0JB80ZZ Excision of Abdomen Subcutaneous Tissue and Fascia, Open Approach (ICD-10-PCS; principal; 2019-12-31)
DX: T81.41XA Infection following a procedure, superficial incisional surgical site, initial encounter (principal); A41.9 Sepsis, unspecified organism; E11.52 Type 2 diabetes mellitus with diabetic peripheral angiopathy with gangrene; I96 Gangrene, not elsewhere classified; E46 Unspecified protein-calorie malnutrition; E44.0 Moderate protein-calorie malnutrition; L76.82 Other postprocedural complications of skin and subcutaneous tissue; I10 Essential (primary) hypertension; E86.0 Dehydration; R09.02 Hypoxemia; R63.0 Anorexia; M62.50 Muscle wasting and atrophy, not elsewhere classified, unspecified site; E83.42 Hypomagnesemia; E11.65 Type 2 diabetes mellitus with hyperglycemia; F17.200 Nicotine dependence, unspecified, uncomplicated; Y83.8 Other surgical procedures as the cause of abnormal reaction of the patient, or of later complication, without mention of misadventure at the time of the procedure; Z95.820 Peripheral vascular angioplasty status with implants and grafts; Z79.4 Long term (current) use of insulin; Z99.81 Dependence on supplemental oxygen; Z68.26 Body mass index [BMI] 26.0-26.9, adult; K59.00 Constipation, unspecified; S09.90XA Unspecified injury of head, initial encounter; W01.198A Fall on same level from slipping, tripping and stumbling with subsequent striking against other object, initial encounter; Y92.002 Bathroom of unspecified non-institutional (private) residence as the place of occurrence of the external cause; T81.30XD Disruption of wound, unspecified, subsequent encounter; L98.499 Non-pressure chronic ulcer of skin of other sites with unspecified severity; E66.9 Obesity, unspecified; S21.002A Unspecified open wound of left breast, initial encounter; L22 Diaper dermatitis; L89.151 Pressure ulcer of sacral region, stage 1; R05 Cough
CPT/HCPCS: A6214; J0692; J3370; J3475; Q3014

== ENCOUNTER 2020-01-07 | Emergency (ER) | payer MEDICARE ==
[~2020-01-07] MED LIST changes: +CEFEPIME2 GM IM; +ELAVIL25 M1 PO; +LYPHOCIN1 GM IJ; +PERCOCET 10/31 COMBO PO; +SANTYL250 UNIT/G TOP
[2020-01-07 09:40] LABS: HEMATOCRIT 31.8 % (37.0-47.0); HEMOGLOBIN 9.4 g/dl (12.0-16.0); IMMATURE GRANULOCYTES 0.6 % (0.0-5.0); MEAN CELL VOLUME 82.2 fL CALC (80.0-100.0); MEAN CORPUSCULAR HGB 24.3 pG CALC (26.0-32.0); MEAN CORPUSCULAR HGB CONC 29.6 g/L CALC (32.0-36.0); NEUT# 8.02 thou/uL (2.00-7.15); RED BLOOD COUNT 3.87 mill/uL (4.20-5.60); RED CELL DISTRI WIDTH 24.2 % (11.5-15.5)
[2020-01-07 10:00] LABS: ALKALINE PHOSPHATASE 238 u/l (38-126); AMYLASE 36 u/l (30-110); ANION GAP 11 (6-22 (CALC)); BUN 12 mg/dL (7-17); BUN/CREATININE RATIO 22 (12-20 (CALC)); CARBON DIOXIDE 19 mmol/l (22-30); CHLORIDE 109 mmol/l (95-108); CREATININE 0.5 mg/dL (0.5-1.0); GFR > 60 ML/MIN (>=60 (CALC)); GFR FOR AFR.AMER. > 60 ML/MIN (>=60 (CALC)); LIPASE 12 u/l (23-300); POTASSIUM 3.7 mmol/l (3.5-5.1); SGOT/AST 25 u/l (14-36); SODIUM 134 mmol/l (137-146)
[2020-01-07 10:02] LABS: ALBUMIN 2.9 g/dL (3.2-5.0); BILIRUBIN, TOTAL 0.4 mg/dL (0.0-1.4); TOTAL PROTEIN 7.6 g/dL (6.3-8.2)
[2020-01-07 10:08] LABS: ACT PARTIAL THROMBO TIME 28.7 SECONDS (20.0-32.5); D-DIMER 2.16 mg/L (0.19-0.60); INTERNATIONAL NORMALIZED RATIO 1.1 RATIO (0.7-1.3); PROTHROMBIN TIME 11.3 SECONDS (9.0-12.5)
[2020-01-07] MEDS ORDERED: CEFEPIME2 GM IV (10:29)
[2020-01-07] MEDS ORDERED: [UNRECOGNIZED DRUG - OTHER] IV (10:30)
[2020-01-07] MEDS ORDERED: SANTYL250 UNIT/G (10:32)
[2020-01-07] MEDS ORDERED: HEPARIN IV (10:32)
[2020-01-07] MEDS ORDERED: MOTRIN800 MG PO (10:34)
[2020-01-07] MEDS ORDERED: VICTOZA18 MG/3 ML SC (11:00)
== END 2020-01-07 12:52 | disposition left against medical advice (07) ==
PROVIDERS: Emergency Medicine
DX: R07.9 Chest pain, unspecified (principal); R22.1 Localized swelling, mass and lump, neck; E27.9 Disorder of adrenal gland, unspecified; I10 Essential (primary) hypertension; E11.9 Type 2 diabetes mellitus without complications; F17.210 Nicotine dependence, cigarettes, uncomplicated; Z91.19 Patient's noncompliance with other medical treatment and regimen; Z79.4 Long term (current) use of insulin
CPT/HCPCS: J2060; Q9967

== ENCOUNTER 2020-01-09 | Inpatient (IN) | payer MEDICARE ==
[2020-01-09] VITALS (11 sets, daily range): BP systolic 90–127; BP diastolic 50–84
[~2020-01-09] MED LIST changes: +CEFEPIME2 GM IV; +HEPARIN IV; +SANTYL250 UNIT/G; +[UNRECOGNIZED DRUG - OTHER] IV
--- NOTE | 2020-01-09 11:25 | NUR ---
PT ARRIVES VIA EMS AFTER UNKNOWN DOWN TIME AT HOME, HOME HEALTH NURSE FOUND PT UNRESPONSIVE WITH BS OF 11, EMS INITIATED TX EN ROUTE AND BS 118 ON ARRIVAL. 1128 PT TRANSFERED TO [address] ON MONITOR PT WITH AGONAL RESPIRATIONS, PREPPED FOR INTUBATION. 1135 20MG ETOMIDATE IVP PER DR RAMIRES 1136 100MG ROCURONIUM IVP PER DR RAMIRES 1137 INTUBATION SUCCESSFUL ET TUBE #, 22@LIP, GOOD COLOR CHANGE AND POSITIVE BREATH SOUNDS BILATERALLY. O2 SAT 98%. 1137 INITIATED PROPOFOL AT 10 MCG/KG/MIN 1141 LEFT IJ TRIPLE LUMEN INSERTED BY DR RAMIRES WITH GOOD BLOOD RETURN 1144 INSERTED #16FR ng TUBE LT NARE, + BOWEL SOUND, HOOLED TO INTERMITTENT SUCITON 1148 INSERTED FC #16,10CC FOR ACCURATE I&O, IMMEDIATE RETURN OF 250+ CC YESENIA URINE PT REMAINS SEDATED WITH STABLE VS.
--- NOTE | 2020-01-09 12:10 | NUR ---
CHANGED VENT RATE FROM 14 TO 18
--- NOTE | 2020-01-09 12:20 | NUR ---
PT CONTINUES ON VENT WITH O2 SAT 99%, IV GTTS INFUSING. PT NOT RESPONSIVE TO PAINFUL STIMULI AT THIS TIME SHE IS SEDATED.
[2020-01-09 12:25] LABS: HEMATOCRIT 32.1 % (37.0-47.0); HEMOGLOBIN 9.3 g/dl (12.0-16.0); IMMATURE GRANULOCYTES 0.4 % (0.0-5.0); MEAN CORPUSCULAR HGB 24.3 pG CALC (26.0-32.0); NEUT# 9.57 thou/uL (2.00-7.15); RED BLOOD COUNT 3.82 mill/uL (4.20-5.60); RED CELL DISTRI WIDTH 24.1 % (11.5-15.5)
[2020-01-09 12:40] LABS: ALBUMIN 2.4 g/dL (3.2-5.0); ALKALINE PHOSPHATASE 207 u/l (38-126); ANION GAP 14 (6-22 (CALC)); BILIRUBIN, TOTAL 0.3 mg/dL (0.0-1.4); BUN 9 mg/dL (7-17); BUN/CREATININE RATIO 23 (12-20 (CALC)); CARBON DIOXIDE 19 mmol/l (22-30); CHLORIDE 107 mmol/l (95-108); CREATININE 0.4 mg/dL (0.5-1.0); GFR > 60 ML/MIN (>=60 (CALC)); GFR FOR AFR.AMER. > 60 ML/MIN (>=60 (CALC)); POTASSIUM 3.5 mmol/l (3.5-5.1); SGOT/AST 32 u/l (14-36); SODIUM 138 mmol/l (137-146); TOTAL PROTEIN 6.5 g/dL (6.3-8.2)
--- NOTE | 2020-01-09 12:45 | NUR ---
TITRATING PROPOFOL NEEDED FOR SEDATION. NURSE 1:1 WITH PT AT THIS TIME. CONTIUES WITH SEDATION , ET TUBE AND VENT FOR VENTILATION. AT BEDIDE AND APPRISED OF PTS CONDITION
[2020-01-09 13:12] LABS: URINE BILIRUBIN - DIPSTICK NEGATIVE (NEGATIVE); URINE BLOOD DIPSTICK TRACE-LYSED (NEGATIVE); URINE COLOR YELLOW; URINE GLUCOSE - DIPSTICK 100 mg/dL (NEGATIVE); URINE KETONE NEGATIVE (NEGATIVE); URINE LEUK ESTERASE NEGATIVE (NEGATIVE); URINE NITRITE - DIPSTICK NEGATIVE (Negative); URINE PH 6.5 (4.5-8.0); URINE PROTEIN - DIPSTICK NEGATIVE (NEG-TRACE); URINE SPECIFIC GRAVITY 1.015; URINE UROBILINOGEN - DIPSTICK 0.2 E.U./dL (0.2)
[2020-01-09 13:14] LABS: LIPASE 11 u/l (23-300)
--- NOTE | 2020-01-09 13:15 | NUR ---
FAMILY CONTINUES AT BEDSIDE, SEDATION ADJUSTED PER PROTOCOL. VSS. PT REMAINS SEDATED. IVF BOLUS CONTINUES
--- NOTE | 2020-01-09 14:02 | NUR ---
INITIATED LR BOLUS ORDERED, FAMILY AT [facility] AND UPDATED ON ADDITIONAL SCANS. VSS. PT REMAINS SEDATED ON VENT WITHO2 SAT 99%, GENESIS CASTELLANO CONTINUES
--- NOTE | 2020-01-09 14:05 | NUR ---
FC EMPTIED OF 1200CC CLEAR DARK YELLOW URINE
--- NOTE | 2020-01-09 14:56 | NUR ---
RETURNED FROM CT WITH NURSE AND RT ON [employer]ATOR [employer] . AUSCULTATED BREATH SOUNDS BILAT +. O2 SAT 99% ON VENT. ALL MONITORS ASSESSED.
--- NOTE | 2020-01-09 15:00 | NUR ---
PTS VERIFIED MEDS BUT IS UNABLE TO CONFIRM LAST INTAKE.
--- NOTE | 2020-01-09 15:45 | NUR ---
PT INTERMITTENTLY MOVING FEET AND HEAD AND GAGGING AROUND TUBE INCREASED PROPOFOL FROM 45-50MCG/KG/MIN
[2020-01-09 16:40] LABS: BARBITURATES NEGATIVE (NEGATIVE); COCAINE NEGATIVE (NEGATIVE); METHADONE NEGATIVE (NEGATIVE); OXCYCODONE POSITIVE (NEGATIVE); TETRAHYDROCANNABIONOL NEGATIVE (NEGATIVE); TRICYLIC ANTIDEPRESSANTS POSITIVE (NEGATIVE)
--- NOTE | 2020-01-09 16:42 | NUR ---
PT MEDICATED FOR PAIN FOR CONTINUED ELEVATED HR AND BP. PT RESTING MORE COMFORTABLY AT THIS TIME
[2020-01-09] MEDS ORDERED: MAXZIDE PO (16:52)
--- NOTE | 2020-01-09 17:06 | NUR ---
CALLED REPORT TO [facility]
--- NOTE | 2020-01-09 17:20 | NUR ---
PT TRANSPORTED TO ICU WITH MANUAL VENTILATION ON GTTS AND CONVERTER SKIMMER
--- NOTE | 2020-01-09 17:20 | NUR ---
PT TO ICU1 FROM ER. PT VENTED. ON PROP AT 60 MCG/KG/HR, LEVO AT 8MCG/MIN. JOLLEY. NG TUBE. NO DISTRESS NOTED. ABDOMINAL WOUND PRESSENT ON ADMISSION. STAGE II ON BUTTOCKS/SACRUM PRESENT ON ADMISSION. DAHLIA PICC PRESENT ON ADMISSION. UNABLE TO EDUCATED AND ASK PT QUESTIONS DUE TO SEDATION AND VENT. NO FAMILY AT BEDSIDE. WILL CONTINE TO MONITOR.
--- NOTE | 2020-01-09 17:34 | NUR ---
PT TRANSFERED TO ICU AND REMAINS ON CURRENT VENT SETTINGS. B/S ARE COARSE BILAT. SUCT SMALL AMT THICK SECRETIONS.
--- NOTE | 2020-01-09 18:45 | NUR ---
REPORT GIVEN TO NIGHT RN. NO DISTRESS NOTED. PT INTUBATED AND SEDATED. PLEASE SEE FLOW SHEET FOR FURTHER DETAILS.
--- NOTE | 2020-01-09 19:00 | NUR ---
[id number]: PATIENT LAYS WITH HOB NEAR 30 DEGREES. HEAD TO TOE NURSING ASSESSMENT PERFORMED. PATIENT MOVES FEET WITH PAINFUL STIMULI. PATIENT REPSOITIONED TO L -SIDE AND HEELS ELEVATED. SCD'S INTACT BILATERALLY. JOLLEY CATH INTACT, DRAINS PALE YELLOW, CLEAR URINE. AC ON VENTILATOR, PEEP 5 TIDAL V 500, FIO2 40%, RATE 18. 24CM AT THE LIP. L-NARE NG TUBE AT LIS AND INTACT, PLACEMENT VERIFIED. PATIENT WAS SUCTIONED. MOUTH CARE PERFORMED. ABDOMINAL DRESSING INTACT, NO DRAINAGE. LIJ 3 LUMEN INTACT, MEDICATIONS INFUSING PROPERLY. DAHLIA PICC 1 LUMEN INTACT, FLUSHED AND RETURNS BLOOD. MRSA SWAB SENT FOR HX OF MRSA.
--- NOTE | 2020-01-09 21:30 | NUR ---
PT REPOSITIONED. HEELS ELEVATED. NO ACUTE DISTRESS SHOWN.
--- NOTE | 2020-01-09 22:42 | NUR ---
RT IN ROOM
[2020-01-10] VITALS (107 sets, daily range): BP systolic 79–145; BP diastolic 51–103
--- NOTE | 2020-01-10 01:08 | NUR ---
RT IN ROOM EITH PATIENT
--- NOTE | 2020-01-10 02:50 | NUR ---
PT REPOSITIONED. SUCTIONED. HEELS ELEVATED.
--- NOTE | 2020-01-10 04:37 | NUR ---
[id number] BEDBATH PROVIDED, JOLLEY CARE PROVIDED, REPOSITIONED. SUCTIONED, MOUTH CRAE PROVIDED. SCD'S REPLACED. BILAT RESTRAINTS REPLACED AND INTACT. JOLLEY CATH INTACT. NGT AT [facility].
--- NOTE | 2020-01-10 05:24 | NUR ---
BLOOD DRAWN FROM [facility] FOR LABWORK ORDERED. NG TUBE PLACEMENT VERIFIED.
[2020-01-10 06:00] LABS: IMMATURE GRANULOCYTES 0.7 % (0.0-5.0); MEAN CORPUSCULAR HGB 24.4 pG CALC (26.0-32.0); NEUT# 7.1 thou/uL (2.00-7.15); RED BLOOD COUNT 3.69 mill/uL (4.20-5.60); RED CELL DISTRI WIDTH 24.5 % (11.5-15.5)
--- NOTE | 2020-01-10 06:11 | NUR ---
PATIENT PLACED ON HER BACK. HEELS ELEVATED, MOUTH CARE PERFORMED. SUCTIONED. HOB 30 DEGREES.
[2020-01-10 06:13] LABS: ANION GAP 8 (6-22 (CALC)); BUN 6 mg/dL (7-17); BUN/CREATININE RATIO 11 (12-20 (CALC)); CARBON DIOXIDE 22 mmol/l (22-30); CHLORIDE 111 mmol/l (95-108); CREATININE 0.5 mg/dL (0.5-1.0); GFR > 60 ML/MIN (>=60 (CALC)); GFR FOR AFR.AMER. > 60 ML/MIN (>=60 (CALC)); POTASSIUM 3.6 mmol/l (3.5-5.1); SODIUM 138 mmol/l (137-146)
--- NOTE | 2020-01-10 06:18 | NUR ---
PATIENT SITS UP IN BED. NO ACUTE DISTRESS SHOWN. TEMP NOW 98.7. NO NEEDS AT THIS TIME.
--- NOTE | 2020-01-10 07:22 | NUR ---
REPORT RECIEVED FROM NIGHT RN. PT INTUBATED AND SEDATED. ON LEVO GTT FOR BP SUPPORT. SEDATION DECREASED TO OBTAIN NEURO ASSESSMENT. WILL CONTINUE TO MONITOR.
--- NOTE | 2020-01-10 08:15 | NUR ---
TRIMMING INSPECTOR VEST AT BEDSIDE TO ASSESS PT. PT STILL UNRESPONSIVE TO PAIN OR STIMULATION. TRIMMING INSPECTOR VEST NOTIFIED.
--- NOTE | 2020-01-10 08:40 | NUR ---
LICENSED MASS REAL ESTATE APPRAISER GEREMIAS NOTIFIED OF SEPSIS RISK. NO NEW ORDERS.
--- NOTE | 2020-01-10 09:22 | NUR ---
DR. WHITE AT BEDSIDE TO ASSESS PT. PER DR. WHITE STOP PROP AND D/C RESTRAINTS. NO DISTRESS NOTED. PT REMAINS UNCONSCIOUS. AT BEDSIDE. ALL QUESTIONS ANSWERED. WILL CONTINUE TO MONITOR.
--- NOTE | 2020-01-10 10:39 | NUR ---
VENT CHANGES P/ ABG DECREASED RR FROM 18 TO 16 FIO2 FROM 40% TO 30% DR. WHITE AWARE ALARMS ON AND AUDIBLE
--- NOTE | 2020-01-10 10:45 | NUR ---
PT BLOOD PRESSURE 81/54. DR. WHITE NOTIFIED. NS BOLUS ORDER. HOLD LOPRESSOR. LEVO GTT RESTARTED. WILL CONTINUE TO MONITOR.
--- NOTE | 2020-01-10 11:15 | NUR ---
PT OPENED EYES SPONTANEOUS. NO MOVEMENTS ON ALL EXTREMITIES FAMILY AT BEDSIDE. WILL CONTINUE TO MONITOR.
--- NOTE | 2020-01-10 12:20 | NUR ---
DR. LORENZ AT BEDSIDE TO ASSESS PT
--- NOTE | 2020-01-10 12:30 | NUR ---
ABDOMINAL DRESSING CHANGED PER DR. WHITE. PICTURES IN CHART. DRESSING WET TO DRY WITH ABD PADS ON ABDOMEN AND TAPED.
--- NOTE | 2020-01-10 14:30 | NUR ---
PT ON VENT. PT ON LEVO GTT. NO DISTRESS NOTED. WILL CONTINUE TO MONITOR
--- NOTE | 2020-01-10 15:57 | NUR ---
DR. WHITE UPDATED ON PT STATUS.
--- NOTE | 2020-01-10 16:25 | NUR ---
PT TO CT SCAN. ON MONITOR. WITH RT AND RN. NO DISTRESS NOTED
--- NOTE | 2020-01-10 16:40 | NUR ---
PT BACK TO ICU1 FROM CT SCAN. ON MONITOR. WITH RT AND RN. NO DISTRESS NOTED. WILL CONTINUE TO MONITOR.
--- NOTE | 2020-01-10 17:05 | NUR ---
DR. WHITE UPDATED ON PT STATUS. PT NOTED TO HAVE LEFT SIDE DEVIATION GAZE. DR. WHITE NOTIFIED. NO NEW ORDERS. WILL CONTINUE TO MONITOR.
--- NOTE | 2020-01-10 18:55 | NUR ---
REPORT GIVEN TO NIGHT NURSE. PT UNRESPONSIVE. PT NOTED TO HAVE LEFT DEVIATION GAZE. PT NOTED TO HAVE INVOLUNTARY MOVEMENT IN LOWER RIGHT EXTREMITY. PT OPENS EYES SPONTANEOUSLY. PT DOES NOT FOLLOW COMMANDS. PT OFF PROP GTT. PT ON LEVO GTT. PT VENTED. NO DISTRESS NOTED. PLEASE SEE FLOW SHEET FOR FURTHER DETAILS.
--- NOTE | 2020-01-10 18:55 | NUR ---
RECEIVED REPORT FROM PAULO PHILLIPS.
--- NOTE | 2020-01-10 19:20 | NUR ---
PT REACHING UP WITH L ARM, MOVING L LEG. NO MOVEMENT R SIDE. PT HAS L GAZE, DOES NOT RESPOND TO VERBAL COMMAND. NG TUBE WITH BROWN DRAINAGE. ABD DRESSING DRY AND INTACT. SISTER SITTING AT BEDSIDE.
--- NOTE | 2020-01-10 19:25 | NUR ---
CALLED, SPOKE WITH JUAN PHILLIPS, REVIEWED PT CONDITION.
--- NOTE | 2020-01-10 19:28 | NUR ---
DR WHITE CALLED, INFORMED OF PT STATUS BY JUAN PHILLIPS, OK TO CONTINUE PROPOFOL GTT.
--- NOTE | 2020-01-10 19:55 | NUR ---
RECEIVED REPORT FROM PAULO PHILLIPS.
--- NOTE | 2020-01-10 19:55 | NUR ---
PT MOVING R ARM AND R LEG, L GAZE MORE MIDLINE.
--- NOTE | 2020-01-10 22:00 | NUR ---
PT OPENS EYES TO PAIN, GAZE REMAINS SLIGHTLY TO L. PT MOVES UPPER EXTREMITIES, WITHDRAWING FROM PAIN, L GREATER THAN R.
[2020-01-11] VITALS (20 sets, daily range): BP systolic 103–134; BP diastolic 62–93
--- NOTE | 2020-01-11 | NUR ---
PT REMAINS SEDATED, PROPOFOL AND LEVOPHED INFUSING. PT OPENS EYES IN RESPONSE TO ORAL CARE. NO NEURO CHANGE NOTED.
--- NOTE | 2020-01-11 02:00 | NUR ---
TURNED PT TO SUPINE POSITION. EYES REMAINED CLOSED DURING ORAL CARE. WITHDRAW NOTED TO L ARM AND LEG. LEVOPHED AND PROPOFOL INFUSING.
--- NOTE | 2020-01-11 04:00 | NUR ---
PT TURNED TO L SIDE. SMALL AMOUNT OF EYE OPENING WITH ORAL CARE. PT WITH L ARM RETRACTION TO PAIN. LEVOPED, PROPOFOL INFUSING.
[2020-01-11 04:28] LABS: HEMATOCRIT 29.9 % (37.0-47.0); HEMOGLOBIN 8.7 g/dl (12.0-16.0); IMMATURE GRANULOCYTES 0.6 % (0.0-5.0); MEAN CELL VOLUME 83.1 fL CALC (80.0-100.0); MEAN CORPUSCULAR HGB 24.2 pG CALC (26.0-32.0); MEAN CORPUSCULAR HGB CONC 29.1 g/L CALC (32.0-36.0); NEUT# 6.82 thou/uL (2.00-7.15); RED BLOOD COUNT 3.6 mill/uL (4.20-5.60); RED CELL DISTRI WIDTH 24.2 % (11.5-15.5)
[2020-01-11 04:52] LABS: ANION GAP 8 (6-22 (CALC)); BUN 5 mg/dL (7-17); BUN/CREATININE RATIO 13 (12-20 (CALC)); CARBON DIOXIDE 20 mmol/l (22-30); CHLORIDE 109 mmol/l (95-108); CREATININE 0.4 mg/dL (0.5-1.0); GFR > 60 ML/MIN (>=60 (CALC)); GFR FOR AFR.AMER. > 60 ML/MIN (>=60 (CALC)); POTASSIUM 3.4 mmol/l (3.5-5.1); SODIUM 133 mmol/l (137-146)
--- NOTE | 2020-01-11 06:00 | NUR ---
ORAL CARE PROVIDED, PT RESPONDS WITH FACIAL GRIMACES. PLACED IN SUPINE POSITION.
--- NOTE | 2020-01-11 06:27 | NUR ---
RESP AT BEDSIDE FOR VENT ALARMING FOR [facility] TO DELIVER FULL VOLUME. RESP TO CHANGE FILTER.
--- NOTE | 2020-01-11 07:31 | NUR ---
REPORT TO OSORIO PHILLIPS
--- NOTE | 2020-01-11 08:42 | NUR ---
AT BEDSIDE - UPDATE GIVEN.
--- NOTE | 2020-01-11 10:00 | NUR ---
DRSG CHANGED TO ABDOMEN - CLEANED WITH SALINE. SALINE WET TO DRY DRSG - SALINE MOIST GAUZE COVERED WITH ABD AND SECURED WITH ELASTIC TAPE. PT TOLERATED WELL.
--- NOTE | 2020-01-11 10:38 | NUR ---
PT WEANED TO ROOM AIR
--- NOTE | 2020-01-11 16:41 | NUR ---
S: JULIO LOPEZ is a 54 F who present FOUND UNRESPONSIVE. She has a history of PNUEMONIA,DM2,HTN,PVD,RECENT ABDOMINAL SURGERIES. All medications in patient's chart were reviewed. O: VS: BP 117/62, P 111, RR 24,T 98.1 W 67 kg, HT 64IN, Scr=0.4 A: Blood culture <is pending/show> which is sensitive to <>. Urine culture <is pending/show> which is sensitive to <>. P: Patient is on CEFEPIME AND VANCOMYCIN. Vancomycin ordered for pharmacy to dose. Start Vancomycin 1250 IV Q24H ( HOME [facility]ALTH PREVIOUSLY FOLLOWING WILL CONTINUE THIS DOSE AND CHECK TROUGH). Vancomycin trough is drawn before the 4th dose on 01/14/20 1030. Vancomycin goal trough is between <10-20 mcg/ml>. Pharmacy will follow and or advise on antibiotics use as needed.
--- NOTE | 2020-01-11 19:03 | NUR ---
BED ASSIGNMENT RECEIVED FROM RICK AT [facility] A1 1830. UNIT 5A BED 02A. CALL REPORT TO [phone]. RICK UPDATED THAT ESTIMATED DISTILLATION OPERATOR TIME WILL BE 1920 BY [facility].
--- NOTE | 2020-01-11 19:06 | NUR ---
REPORT GIVEN TO JACQUELINE MOLINA - ONCOMING NURSE.
--- NOTE | 2020-01-11 19:35 | NUR ---
[facility] FOR TRANSFER.
--- NOTE | 2020-01-11 19:45 | NUR ---
PROFOFOL STOPPED THIS A.M. PT CLOSELY MONITORED FOR ALERTNESS. PT WITHDRAWS TO PAIN AND OPENS EYES TO PAIN AND SPEECH WHEN SPOKEN TO BY . [facility] AT BEDSIDE FOR MOST OF SHIFT. DECISION TO TRANSFER [facility] BY PHYSICIAN AND EXPLAINED TO DUE TO PATIENT'S MENTAL STATUS. AGREES AND REQUEST FOR PATIENT TO BE TRANSFERRED TO [facility]. DR. BROWN UPDATED ON PATIENT STATUS THROUGH OUT SHIFT. DR. BROWN AT BEDSIDE MULTIPLE TIMES DURING SHIFT. [facility] TRANSPORT SERVICE IN UNIT FOR TRANSPORT TO [facility]. REPORT GIVEN TO TANJA.
--- NOTE | 2020-01-11 20:13 | NUR ---
[facility] ENROUTE TO [facility]. REPORT GIVEN TO [facility] BY OSORIO PHILLIPS.
--- NOTE | 2020-01-11 20:23 | NUR ---
REPORT CALLED TO LAILA PHILLIPS [facility] [phone]
--- NOTE | 2020-01-12 14:15 | NUR ---
Called [facility] and spoke to nurse Alma Rosa regarding positive sputum results for Gram Negative Edi Enterobacter Aerogenes. Faxed results to [phone].
== END 2020-01-11 20:13 | disposition short-term general hospital (02) | DRG 871 ==
PROVIDERS: Family Medicine; ADMIT Internal Medicine
PROC: 0BH17EZ Insertion of Endotracheal Airway into Trachea, Via Natural or Artificial Opening (ICD-10-PCS; principal; 2020-01-09)
PROC: 5A1945Z Respiratory Ventilation, 24-96 Consecutive Hours (ICD-10-PCS; 2020-01-09)
PROC: 0T9B70Z Drainage of Bladder with Drainage Device, Via Natural or Artificial Opening (ICD-10-PCS; 2020-01-09)
PROC: 02HV33Z Insertion of Infusion Device into Superior Vena Cava, Percutaneous Approach (ICD-10-PCS; 2020-01-09)
DX: A41.9 Sepsis, unspecified organism (principal); R65.21 Severe sepsis with septic shock; J18.9 Pneumonia, unspecified organism; G93.41 Metabolic encephalopathy; J96.01 Acute respiratory failure with hypoxia; T81.41XA Infection following a procedure, superficial incisional surgical site, initial encounter; E11.649 Type 2 diabetes mellitus with hypoglycemia without coma; I10 Essential (primary) hypertension; F17.200 Nicotine dependence, unspecified, uncomplicated; E11.51 Type 2 diabetes mellitus with diabetic peripheral angiopathy without gangrene; B96.5 Pseudomonas (aeruginosa) (mallei) (pseudomallei) as the cause of diseases classified elsewhere; Y83.8 Other surgical procedures as the cause of abnormal reaction of the patient, or of later complication, without mention of misadventure at the time of the procedure; Z95.820 Peripheral vascular angioplasty status with implants and grafts; Z79.4 Long term (current) use of insulin; R07.9 Chest pain, unspecified; R22.1 Localized swelling, mass and lump, neck; E11.9 Type 2 diabetes mellitus without complications; F17.210 Nicotine dependence, cigarettes, uncomplicated; Z91.19 Patient's noncompliance with other medical treatment and regimen
CPT/HCPCS: J0692; J1160; J2060; J3370; Q9967; S0164